=== PATIENT | male | born 1940 | race Caucasian/White ===

== ENCOUNTER 2022-07-08 15:51 | Observation (INO) | payer MEDICARE, SELFPAY ==
[2022-07-08] VITALS (8 sets, daily range): BP systolic 155–215; BP diastolic 62–101; PULSE 55–117; RESP 13–17; TEMP 36.6–36.8; O2SAT 96–98; BMI 20.7
--- NOTE | ~2022-07-08 | CT_ITS ---
EXAMINATION: CT HEAD WITHOUT CONTRAST CLINICAL INFORMATION: Generalized weakness. No neurological defects. COMPARISON: CT brain 10/29/2010 TECHNIQUE: Contiguous axial imaging was performed from the skull base to vertex without intravenous administration of contrast. This CT examination was performed using dose optimization techniques as appropriate, variously including the following: *Automated exposure control *Adjustment of mA and/or kV according to patient size (this includes techniques or standardized protocols for targeted exams where dose is matched to indication/reason for exam; i.e. extremities or head) *Use of iterative reconstruction technique DLP: 691 mGy-cm FINDINGS: There are densities in the subcortical brain tissue in bilateral frontoparietal regions, suspected to be artifactual. There is otherwise no evidence of acute intracranial hemorrhage or territorial infarction. No abnormal mass effect or midline shift is seen. Boateng to white matter differentiation is well preserved. No extra-axial fluid collections are identified. Commensurate prominence of the ventricles and sulci is compatible with generalized parenchymal volume loss. There is patchy periventricular and subcortical white matter hypoattenuation, most likely representing microangiopathic disease. No acute calvarial fracture.. Paranasal sinuses and mastoid air cells are well-aerated. CT/CT head/brain wo IV con IMPRESSION: Subcortical densities in bilateral frontoparietal regions, suspected to be artifactual. Repeat CT scan as clinically warranted. Otherwise, CT evidence of acute intracranial hemorrhage or edematous territorial infarction.
--- NOTE | ~2022-07-08 | XR_ITS ---
EXAMINATION: XR CHEST CLINICAL INFORMATION: Weakness, pneumonia COMPARISON: X-ray 02/28/2009 TECHNIQUE: Frontal view of the chest was obtained. FINDINGS: The cardiomediastinal silhouette is within normal limits. The lungs are well expanded. There is no focal consolidation, edema, or effusion. No pneumothorax. No acute osseous abnormality. XR/XR chest 1V IMPRESSION: No focal consolidation
--- NOTE | ~2022-07-08 | MR_ITS ---
EXAMINATION: MRI OF THE BRAIN WITHOUT CONTRAST CLINICAL INFORMATION: Stroke like symptoms. COMPARISON: CTA of the head and neck 07/08/2022. TECHNIQUE: MRI of the brain was obtained using routine sequences without contrast. FINDINGS: No diffusion abnormalities are identified to suggest an acute or subacute infarct. No mass effect or midline shift is seen. There is commensurate prominence of the ventricles and sulci consistent with moderate diffuse volume loss. There are multiple scattered foci of hyperintense T2 and place signal in the periventricular and subcortical white matter, most consistent with chronic microvascular ischemic changes. There is a chronic lacunar infarct in the right centrum semiovale. No extra-axial fluid collections are seen. The brainstem and cerebellum are normal. There is a 4 mm focus of low gradient signal in the left frontal lobe, without corresponding abnormal signal on other sequences, which is nonspecific and may be consistent with a small cavernoma. A similar but less prominent focus is seen in the inferior right frontal lobe anterolaterally. There are a few small subcortical foci of low gradient signal in the cerebral hemispheres bilaterally and medial to the occipital horn of the left lateral ventricle, which may be consistent with amyloid angiopathy. The craniovertebral junction, marrow signal, and midline structures are normal. The major intracranial flow-voids at the level of the [place] of [place] are preserved. 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 The extradural vertebral arteries are also not well seen on these images. The dural venous sinus flow-voids are maintained. There have been bilateral lens extractions. There is moderate fluid in the right mastoid air cells. There is a small retention cyst anteriorly in the left maxillary sinus. MR/MR head/brain wo con IMPRESSION: 1. There are no acute bleeds or territorial infarcts. No masses are demonstrated. 2. There are chronic microvascular ischemic changes and there is diffuse volume loss. 3. There are multiple areas of subcortical low gradient signal bilaterally as described above which may be consistent with amyloid angiopathy. The focus in the left frontal lobe may be consistent with a small cavernoma.
--- NOTE | ~2022-07-08 | CT_ITS ---
EXAMINATION: CT ANGIOGRAM HEAD CT ANGIOGRAM NECK CLINICAL INFORMATION: Ataxia COMPARISON: CT head 07/08/2022 TECHNIQUE: Initial noncontrast plumbing instructor imaging of the head and neck was performed. Comparison is made with noncontrast head CT from earlier today. Test bolus sequences followed by intravenous administration 70 mL of Omnipaque 350. Helical imaging was performed in the axial plane from the aortic arch to the skull vertex. Delayed postcontrast imaging of the head was also performed. The data was processed at the certified cytotechnologist's workstation for generation of MIP sequences. Angled MIPs and volume rendered reformatted images were also generated at an offline 3D workstation. Stenoses are assessed in accordance with Dee et al. Quantification of Carotid Stenosis on CT Angiography. AJR 2006. 27(1):13-19. This CT examination was performed using dose optimization techniques as appropriate, variously including the following: *Automated exposure control *Adjustment of mA and/or kV according to patient size (this includes techniques or standardized protocols for targeted exams where dose is matched to indication/reason for exam; i.e. extremities or head) *Use of iterative reconstruction technique DLP: 1542.12 mGy-cm FINDINGS: CT HEAD: Motion artifact degrades diagnostic assessment. Moderate generalized parenchymal volume loss and mild chronic microangiopathy. No territorial loss of phillips-white differentiation. Post contract technique limits assessment for subarachnoid hemorrhage however no gross intracranial hemorrhage is seen. No significant mass effect or herniation pattern No pathologic intra-axial enhancement within limitations of CT or regional oligemia. The orbits are grossly normal. Paranasal sinuses and mastoid air cells are well aerated. Osseous structures are intact. CTA HEAD: Mild calcific plaque along the carotid siphons without significant luminal stenosis. 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 The MCA vascular complexes are normal bilaterally. The GIACOMO complexes are normal bilaterally. The intradural vertebral arteries are patent. The basilar artery is normal. The posterior cerebral arteries are widely patent. No proximal large vessel occlusion. No no high flow vascular malformations. No evidence of dural arteriovenous fistula. Timing of the contrast bolus allows assessment of the major dural venous sinuses, which all opacify normally CTA NECK: Apparent borderline enlargement of the pulmonary artery up to 3 cm which may be seen in the setting of pulmonary hypertension, noting motion artifact limits diagnostic assessment. Bovine configuration of the aortic arch with common origin of the innominate and left common carotid arteries. Mild partially calcified fibrofatty plaque in the aortic arch and great vessels with widely patent great vessel origins. The common carotid arteries are widely patent. Partially calcified fibrofatty plaque at the carotid bifurcations without luminal narrowing of the internal carotid arteries and with normal opacification of the remainder of the cervical internal carotid arteries. The left vertebral artery is dominant. The vertebral artery ostia are widely patent. Shelf-like linear filling defect along the anterior wall of the left V3 vertebral artery likely intimal flap from age indeterminate dissection (image 627, series 6), however without luminal narrowing or mural thickening to suggest intramural hematoma. Otherwise, the vertebral arteries are unremarkable and widely throughout their extracranial cervical course. CT NECK: Boutonniere deformities of the mylohyoid muscles with partially herniated sublingual glands into the bilateral submandibular space. The visualized lung apices and upper mediastinum are within normal limits. Diffuse osteopenia. Multilevel cervical spondylosis. Prior median sternotomy. CT/CT angio head neck IMPRESSION: 1. No acute intracranial abnormality. 2. Shelf-like linear filling defect along the anterior wall of the left V3 vertebral artery likely represents an intimal flap from age indeterminate dissection, however without luminal narrowing or mural thickening to suggest intramural hematoma. 3. 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 4. Apparent borderline enlargement of the pulmonary artery up to 3 cm which may be seen in the setting of pulmonary hypertension, noting motion artifact limits diagnostic assessment.
--- NOTE | 2022-07-08 16:12 | ECG_ITS ---
Test Reason : dizzy Blood Pressure : / mmHG Vent. Rate : 068 BPM Atrial Rate : 227 BPM P-R Int : 000 ms QRS Dur : 124 ms QT Int : 434 ms P-R-T Axes : 000 -55 032 degrees QTc Int : 461 ms Atrial flutter with variable A-V block Right bundle branch block Left anterior fascicular block Bifascicular block Minimal voltage criteria for LVH, may be normal variant ( R in aVL ) Abnormal ECG When compared with ECG of 21-JAN-2009 14:36, Atrial flutter has replaced Sinus rhythm (RBBB and left anterior fascicular block) is now Present Referred By: Generic ED Physician Electronically Signed By:David Mohamud
--- NOTE | 2022-07-08 16:30 | PC.NURSE ---
patient a&ox3, iv inserted, labs drawn, ekg performed, monitor worker applied a-flutter on monitor, pt states he is feeling much better than he was, neuro intact, no c/o pain/discomfort, family at bedside, call garcia within reach, will continue to monitor
[2022-07-08 16:36] LABS: MANUAL DIFF FLAG NO
[2022-07-08 16:38] LABS: Basophils Percent Auto 0.5 % (0-2); Eosinophils Absolute Auto 0.2 X10*3/uL (0.0-0.4); Eosinophils Percent Auto 3.4 % (0-4); Hematocrit 48.6 % (42.0-52.0); Hemoglobin 15.9 g/dl (14.0-18.0); Imm Gran Abs Auto 0.02 X10*3/uL (0.00-0.03); Imm Gran Pct Auto 0.4 % (0.0-0.4); Lymphocytes Absolute Auto 0.7 X10*3/uL (1.2-4.9); Lymphocytes Percent Auto 11.9 % (20-40); Mean Corpuscular HGB Conc 32.7 g/dl (31.0-36.0); Mean Corpuscular Hemoglobin 32.1 pg (27.0-33.0); Mean Corpuscular Volume 98.2 fL (80.0-98.0); Mean Platelet Volume 10.7 fL (9.4-12.4); Monocytes Absolute Auto 0.6 X10*3/uL (0.1-1.2); Monocytes Percent Auto 10.5 % (2-11); Neutrophils Absolute Auto 4.1 x10*3/uL (2.0-8.3); Neutrophils Percent Auto 73.3 % (45-73); Platelet Count 200 X10*3/uL (160-400); Red Blood Count 4.95 X10*6/uL (4.60-5.80); Red Cell Distribution Width 12.9 % (11.0-16.0); White Blood Count 5.5 X10*3/uL (4.8-10.8)
--- NOTE | 2022-07-08 16:42 | ED.GENADULT ---
HPI - General Adult General Chief complaint: Dizziness Stated complaint: dizzness and weakness Time Seen by Provider: 07/08/22 16:13 Source: patient Mode of arrival: ambulatory Limitations: no limitations History of Present Illness HPI narrative: 81 yold male with history of Mitral Valve prolapse and NE presents to the ED for dizziness described as generalized weakness and fatigue. Patient and states they were walking and patient than states he felt to fatigue to walk. states there were was no water or shade available while walking under the sun. states patient usually walks only for 10 minutes, but today patient decided to walk longer than usual ( 40 minutes walk and became fatigue). Patient denies any slurred speech, nausea, vomitting, chest pain, shortness of breath, facial droop, loss of vision, or paralysis of extremities. patient states just feel fatigue. Related Data Allergies Allergy/AdvReac Type Severity Reaction Status Date / Time metoprolol [Metoprolol] Allergy Intermediate RASH Verified 07/08/22 16:03 cephalexin [Cephalexin] Allergy Unknown UNKNOWN Verified 07/08/22 16:03 ciprofloxacin [From Cipro] Allergy Unknown UNKNOWN Verified 07/08/22 16:03 Sulfa Allergy Unknown Unknown Uncoded 07/08/22 16:03 Review of Systems Review of Systems: Dizziness described as fatigue Yes all other systems are reviewed and are negative [facility] Past Medical History Medical History (Updated 07/09/22 @ 00:15 by AJ Hartmann) Myocardial infarction Surgical History (Updated 07/08/22 @ 16:12 by Marilou Herrera RN) H/O mitral valve replacement Social History Social History Alcohol intake: current Alcohol intake frequency: 0-2 drinks per day Alcohol type: beer and hard liquor Smoked in Last 30 Days: No Use of substances other than those prescribed or required for medical reasons: No Advance Directives: No Advance Directives Information Provided: Yes Physical Exam ED Vital Signs: Vital Signs - 24 hr 07/08/22 16:04 07/08/22 17:06 07/08/22 17:07 Temperature 98.2 F Pulse Rate 76 58 62 Respiratory Rate 16 Blood Pressure 155/81 H 157/94 H 163/82 H Pulse Oximetry 96 Oxygen Delivery Method Room Air 07/08/22 17:09 07/08/22 18:00 07/08/22 19:31 Temperature 97.9 F Pulse Rate 61 55 55 Respiratory Rate 16 13 Blood Pressure 156/73 H 202/98 H 164/62 H Pulse Oximetry 98 97 Oxygen Delivery Method Room Air Room Air 07/08/22 21:13 07/08/22 23:01 Temperature Pulse Rate 79 78 Respiratory Rate 16 17 Blood Pressure 196/101 H 215/95 H Pulse Oximetry 97 96 Oxygen Delivery Method Room Air Room Air BMI result Body Mass Index 20.7 Const General: cooperative, healthy appearing, comfortable, no acute distress, well developed, alert, awake and Physically active [facility] Head: Yes normal to inspection, Yes No palpable skull fracture present, Yes normocephalic, Yes atraumatic and No abrasion Eyes Other: Negative nystagmus General: appearance normal, both eyes and all related structures Pupils: Equal, round and reactive pupils present Neck Neck: Yes normal visual inspection, Yes full ROM, Yes no lymphadenopathy, Yes no meningeal signs, Yes trachea midline, Yes supple, No anterior neck swelling and No tender Chest Chest palpation & inspection: normal inspection of the chest and normal palpation of entire chest wall Resp Effort & Inspection: normal respiratory effort and able to speak in complete sentences Auscultation: clear to auscultation bilaterally Cardio Jugular venous distension: no JVD Heart sounds: S1 normal heart sound present and S2 normal heart sound present GI Inspection: Yes normal to inspection and No abdominal wall ecchymosis Palpation (GI): Soft to palpation, not firm, nontender, no guarding and not rigid General: No CVA tenderness and Yes no CVA tenderness Back/Spine/Pelvis Back: no CVA tenderness, No CVA tenderness and No back tenderness Skin General skin exam: no rashes or lesions noted and elasticity normal Neuro Other: Negative facial droop. Negative slurred speech. Negative pronator drift. All extremities equal strength 5+. Finger to Nose and rapid hand movement intact. NIH score 0. General: no meningeal signs Cranial nerves: Yes Equal, round and reactive pupils present Extrem General: Yes normal to inspection and Yes full ROM Psych Appearance: grossly normal, well kempt and not disheveled Course Course Course Narrative: Patient will have a medical evaluation such as EKG, cardiac enzymes, chest x-ray looking for infection and urine also look for infection. Negative for signs of stroke but was sent for head CT scan. Most likely patient feeling tired+ from walking in the sun not drinking water. Heat Stroke Medications Administered Discontinued Medications Generic Name Dose Route Start Last Admin Trade Name Akhilq PRN Reason Stop Dose Admin Amiodarone HCl 200 mg 07/08/22 23:03 07/08/22 23:22 Amiodarone Hcl 200 Mg Tablet PO 07/08/22 23:04 200 mg ONCE ONE Administration Carvedilol 3.125 mg 07/08/22 23:03 07/08/22 23:21 Carvedilol 3.125 Mg Tablet PO 07/08/22 23:04 3.125 mg ONCE ONE Administration Protocol Sodium Chloride 1,000 mls @ 999 mls/hr 07/08/22 16:39 07/08/22 19:42 Ns IV 07/08/22 17:39 Infused .Q1H1M STA Infusion Sodium Chloride 1,000 mls @ 999 mls/hr 07/08/22 16:40 07/08/22 19:42 Ns IV 07/08/22 17:40 Infused .Q1H1M STA Infusion Iohexol 70 ml 07/09/22 00:01 07/09/22 00:02 Iohexol 350 Mg/Ml 100 Ml Infus..Btl IV 07/09/22 00:02 70 ml ONCE ONE Administration Medical Decision Making Medical Decision Making MDM Narrative: 81-year-old male with past medical history of dementia, coronary artery disease, hypertension, hyperlipidemia, mitral valve prolapse, afib presents to the ED for dizziness described as fatigue. Negative for any neuro deficits. Patient walking for long under summer sun without any shade or water. Labs, chest x-ray, head CT, UA, EKG ordered 5:00pm - notes received from [facility] shows that patient has history of atrial fibrillation and is on apixaban. Also he had normal head CT scan, MRIs, and CT angiogram in February of this year. Patient's echocardiogram showed ejection fraction of 55-60% without any wall abnormalities. Prior EKGs from [facility] show atrial fibrillation and right bundle branch and left bundle branch block. Orthostatic negative. 7:11pm- blood pressure elevated at 202 systolic. Patient is asymptomatic. Will repeat blood pressure. CT scan of the head negative for any acute intracranial infarction hemorrhage. CT scan of head shows subcortical densities bilaterally which is artifactual 12:10am- patient walking and leanin to his right side with dizziness. states this has been occurring since yesterday morning ( patient and did not mention this to me on inital HPI). Hospitalist evaluated patient and recommend head and neck CTA and admit for MRI in the morning. Head and Neck CTA from [facility] notes aneurysm. Patient admitted to the hospital. Repeat troponin negative. UA negative for UTI Differential Diagnosis Differential Diagnoses: The differential diagnosis associated with the presentation includes (NE, stroke, dizziness, pneumonia, UTI, orthostatic hypotension) Admission/Observation Consideration of admission/observation: Escalation of care including admission/observation considered Consult Healthcare Provider Management of the patient was discussed with: Hospitalist (Dr. Valencia) Lab Data [facility] Lab Attestation statement: I reviewed the patient's lab results. 07/08/22 16:25 07/08/22 16:25 Labs: Lab Results 07/08/22 07/08/22 07/08/22 Range/Units 16:25 16:25 16:25 WBC 5.5 (4.8-10.8) X10*3/uL RBC 4.95 (4.60-5.80) X10*6/uL Hgb 15.9 (14.0-18.0) g/dl Hct 48.6 (42.0-52.0) % MCV 98.2 H (80.0-98.0) fL MCH 32.1 (27.0-33.0) pg MCHC 32.7 (31.0-36.0) g/dl RDW 12.9 (11.0-16.0) % Plt Count 200 (160-400) X10*3/uL MPV 10.7 (9.4-12.4) fL Immature Gran % (Auto) 0.4 (0.0-0.4) % Neut % (Auto) 73.3 H (45-73) % Lymph % (Auto) 11.9 L (20-40) % [place] % (Auto) 10.5 (2-11) % Eos % (Auto) 3.4 (0-4) % Baso % (Auto) 0.5 (0-2) % Lymph # (Auto) 0.7 L (1.2-4.9) X10*3/uL [place] # (Auto) 0.6 (0.1-1.2) X10*3/uL Eos # (Auto) 0.2 (0.0-0.4) X10*3/uL Baso # (Auto) 0.0 (0.0-0.2) X10*3/uL Abs Immat Gran (auto) 0.02 (0.00-0.03) X10*3/uL Absolute Neuts (auto) 4.1 (2.0-8.3) x10*3/uL Absolute Nucleated RBC 0.000 (0.0-0.012) X10*3/uL Nucleated RBC % (auto) 0.0 (0.0-0.2) /100WBC PT (10.0-13.1) SEC INR (0.9-1.1) APTT (26.0-36.4) SEC Sodium 144 (135-145) mmol/L Potassium 4.6 (3.3-5.1) mmol/L Chloride 108 (96-108) mmol/L Carbon Dioxide 28 (22-29) mmol/L Anion Gap 13 (12-20) BUN 15 (9-16) mg/dL Creatinine 1.31 (0.5-1.4) mg/dL Estim Creat Clear Calc 40.3 Estimated GFR 53 Random Glucose 105 (60-115) mg/dL Calcium 9.5 (8.4-10.2) mg/dL Total Bilirubin 1.3 H (0.0-1.0) mg/dL Direct Bilirubin 0.4 (0.0-0.5) mg/dL AST 23 (5-37) U/L ALT 11 (0-40) U/L Alkaline Phosphatase 130 H (39-117) U/L Troponin I High Sens 8.7 (<3.5-35.0) ng/L B-Natriuretic Peptide (<100) pg/mL Total Protein 6.4 L (6.5-8.0) g/dL Albumin 4.1 (3.5-5.0) g/dL Urine Color Urine Appearance Urine pH (5.0-9.0) Ur Specific [place] (1.005-1.025) Urine Protein (Neg-Trace) mg/dL Urine Glucose (UA) (Negative) mg/dL Urine Ketones (Negative) mg/dL Urine Blood (Negative) Urine Nitrite (Negative) Ur Leukocyte Esterase (Negative) 07/08/22 07/08/22 07/08/22 Range/Units 16:25 16:25 19:28 WBC (4.8-10.8) X10*3/uL RBC (4.60-5.80) X10*6/uL Hgb (14.0-18.0) g/dl Hct (42.0-52.0) % MCV (80.0-98.0) fL MCH (27.0-33.0) pg MCHC (31.0-36.0) g/dl RDW (11.0-16.0) % Plt Count (160-400) X10*3/uL MPV (9.4-12.4) fL Immature Gran % (Auto) (0.0-0.4) % Neut % (Auto) (45-73) % Lymph % (Auto) (20-40) % [place] % (Auto) (2-11) % Eos % (Auto) (0-4) % Baso % (Auto) (0-2) % Lymph # (Auto) (1.2-4.9) X10*3/uL [place] # (Auto) (0.1-1.2) X10*3/uL Eos # (Auto) (0.0-0.4) X10*3/uL Baso # (Auto) (0.0-0.2) X10*3/uL Abs Immat Gran (auto) (0.00-0.03) X10*3/uL Absolute Neuts (auto) (2.0-8.3) x10*3/uL Absolute Nucleated RBC (0.0-0.012) X10*3/uL Nucleated RBC % (auto) (0.0-0.2) /100WBC PT 13.6 H (10.0-13.1) SEC INR 1.2 H (0.9-1.1) APTT 30.2 (26.0-36.4) SEC Sodium (135-145) mmol/L Potassium (3.3-5.1) mmol/L Chloride (96-108) mmol/L Carbon Dioxide (22-29) mmol/L Anion Gap (12-20) BUN (9-16) mg/dL Creatinine (0.5-1.4) mg/dL Estim Creat Clear Calc Estimated GFR Random Glucose (60-115) mg/dL Calcium (8.4-10.2) mg/dL Total Bilirubin (0.0-1.0) mg/dL Direct Bilirubin (0.0-0.5) mg/dL AST (5-37) U/L ALT (0-40) U/L Alkaline Phosphatase (39-117) U/L Troponin I High Sens 11.6 (<3.5-35.0) ng/L B-Natriuretic Peptide 84 (<100) pg/mL Total Protein (6.5-8.0) g/dL Albumin (3.5-5.0) g/dL Urine Color Urine Appearance Urine pH (5.0-9.0) Ur Specific [place] (1.005-1.025) Urine Protein (Neg-Trace) mg/dL Urine Glucose (UA) (Negative) mg/dL Urine Ketones (Negative) mg/dL Urine Blood (Negative) Urine Nitrite (Negative) Ur Leukocyte Esterase (Negative) 07/08/22 Range/Units 21:15 WBC (4.8-10.8) X10*3/uL RBC (4.60-5.80) X10*6/uL Hgb (14.0-18.0) g/dl Hct (42.0-52.0) % MCV (80.0-98.0) fL MCH (27.0-33.0) pg MCHC (31.0-36.0) g/dl RDW (11.0-16.0) % Plt Count (160-400) X10*3/uL MPV (9.4-12.4) fL Immature Gran % (Auto) (0.0-0.4) % Neut % (Auto) (45-73) % Lymph % (Auto) (20-40) % [place] % (Auto) (2-11) % Eos % (Auto) (0-4) % Baso % (Auto) (0-2) % Lymph # (Auto) (1.2-4.9) X10*3/uL [place] # (Auto) (0.1-1.2) X10*3/uL Eos # (Auto) (0.0-0.4) X10*3/uL Baso # (Auto) (0.0-0.2) X10*3/uL Abs Immat Gran (auto) (0.00-0.03) X10*3/uL Absolute Neuts (auto) (2.0-8.3) x10*3/uL Absolute Nucleated RBC (0.0-0.012) X10*3/uL Nucleated RBC % (auto) (0.0-0.2) /100WBC PT (10.0-13.1) SEC INR (0.9-1.1) APTT (26.0-36.4) SEC Sodium (135-145) mmol/L Potassium (3.3-5.1) mmol/L Chloride (96-108) mmol/L Carbon Dioxide (22-29) mmol/L Anion Gap (12-20) BUN (9-16) mg/dL Creatinine (0.5-1.4) mg/dL Estim Creat Clear Calc Estimated GFR Random Glucose (60-115) mg/dL Calcium (8.4-10.2) mg/dL Total Bilirubin (0.0-1.0) mg/dL Direct Bilirubin (0.0-0.5) mg/dL AST (5-37) U/L ALT (0-40) U/L Alkaline Phosphatase (39-117) U/L Troponin I High Sens (<3.5-35.0) ng/L B-Natriuretic Peptide (<100) pg/mL Total Protein (6.5-8.0) g/dL Albumin (3.5-5.0) g/dL Urine Color Yellow Urine Appearance Clear Urine pH 6.5 (5.0-9.0) Ur Specific [place] 1.015 (1.005-1.025) Urine Protein Negative (Neg-Trace) mg/dL Urine Glucose (UA) Negative (Negative) mg/dL Urine Ketones 15 (Negative) mg/dL Urine Blood Negative (Negative) Urine Nitrite Negative (Negative) Ur Leukocyte Esterase Negative (Negative) Independent Interpretation I performed an independent interpretation of an: EKG (Atrial flutter bifascicular block. Ventricular rate 68 QRS 124 QTC 460 negative STEMI) Discharge Plan Discharge Clinical Impression: Dizziness Patient Disposition: Admitted As Inpatient
[2022-07-08 16:46] LABS: INTERNATIONAL NORM RATIO 1.2 (0.9-1.1); Prothrombin Time 13.6 SEC (10.0-13.1)
[2022-07-08 16:55] LABS: Anion Gap 13 (12-20); Blood Urea Nitrogen 15 mg/dL (9-16); Calcium 9.5 mg/dL (8.4-10.2); Carbon Dioxide 28 mmol/L (22-29); Chloride 108 mmol/L (96-108); Creatinine Clr Calc Pharmacy 40.3; Estimated Glomerular Filt Rate 53; Glucose Random 105 mg/dL (60-115); Potassium 4.6 mmol/L (3.3-5.1); Sodium 144 mmol/L (135-145)
[2022-07-08 17:11] LABS: Troponin-I High Sensitivity 8.7 ng/L (<3.5-35.0)
[2022-07-08 17:20] LABS: Alanine Aminotransferase 11 U/L (0-40); Albumin Level 4.1 g/dL (3.5-5.0); Alkaline Phosphatase 130 U/L (39-117); Aspartate Amino Transferase 23 U/L (5-37); Bilirubin Direct 0.4 mg/dL (0.0-0.5); Bilirubin Total 1.3 mg/dL (0.0-1.0); Total Protein 6.4 g/dL (6.5-8.0)
[2022-07-08] MEDS: 0.9 % Sodium Chloride 1,000 ML 999 ML IV ×2 (17:27)
[2022-07-08 17:28] LABS: Partial Thromboplastin Time 30.2 SEC (26.0-36.4)
--- NOTE | 2022-07-08 17:30 | PC.NURSE ---
IVF started per order
[2022-07-08 17:51] LABS: B Type Natriuretic Peptide 84 pg/mL (<100)
--- NOTE | 2022-07-08 18:18 | PC.NURSE ---
patient a&ox3, ivf continue to run slowly, administrative assistant data entry aflutter-50s, call garcia within reach, will continue to monitor
--- NOTE | 2022-07-08 20:14 | PC.NURSE ---
assumed care of pt no apparent distress at bedside
[2022-07-08 20:15] LABS: Troponin-I High Sensitivity 11.6 ng/L (<3.5-35.0)
--- NOTE | 2022-07-08 20:15 | PC.NURSE ---
Addendum entered by Michelle Lambert 07/08/22 21:24: provider aware provider to follow up with pt in r/t gait Original Note: assisted pt to restroom and back to bed unsteady gait- leaning more on R side
--- NOTE | 2022-07-08 21:24 | PC.NURSE ---
assisted pt to restroom and urine sample obtained
--- NOTE | 2022-07-08 21:25 | PC.NURSE ---
pt requires assistance while ambulating- unsteady gait
[2022-07-08 21:30] LABS: Appearance Urine Clear; Color Urine Yellow; Glucose Urine UA Negative (Negative); Leukocyte Esterase Urine Negative (Negative); Nitrite Urine Negative (Negative); PH 6.5 (5.0-9.0); Specific Gravity - Urine 1.015 (1.005-1.025); Urine Blood Negative (Negative); Urine Ketones 15 mg/dL (Negative); Urine Protein Negative (Neg-Trace)
[2022-07-08] MEDS: carvediloL 3.125 MG TABLET PO (23:21)
[2022-07-08] MEDS: Amiodarone HCL 200 MG TABLET PO (23:22)
--- NOTE | 2022-07-08 23:53 | P.HPHOSP_ITS ---
History of Present Illness Date of Service: 07/08/22 Chief Complaint: difficulty walking, 81-year-old male with past medical history of paroxysmal AFib on Eliquis, hypertension, CAD status post stent, mild Alzheimer's dementia, HLD, mitral valve replacement presents to the hospital with complaints of difficulty walking. patient has mild dementia therefore history is obtained mostly from his . They said that they were on a walk when suddenly patient started walking strangely leaning to the right, and almost falling. asks the neighbors for a chair, they sat, called ambulance and came to the hospital. states that he has had these abnormal leaning to the right on and off for the past 4-5 years but this was the worst episode where he was completely leaning to the right which scared her and prompted them to call the ambulance. Patient himself denies any headache, no change in vision, no numbness weakness or tingling, no chest pain, no shortness of breath, no abdominal pain, no diar yas constipation, no urinary symptoms and no lower extremity edema. Records from [facility] reviewed, patient had Head CT and CT angiogram done in 2021 for stroke-like symptoms, at that time studies were negative. on arrival to the ED patient hemodynamically stable with no significant abnormalities Labs are reviewed and show no significant abnormality, UA negative for acute infection given his significant ataxic gait pt will be admitted for fruther evaluation Review of Systems Review of Systems: Yes all other systems are reviewed and are negative [facility] Medical History (Updated 07/09/22 @ 08:07 by Feroz Celestin MD) Alzheimer's dementia CAD (coronary artery disease) HLD (hyperlipidemia) Hypertension Myocardial infarction Paroxysmal A-fib Surgical History H/O mitral valve replacement Social History Household Members: Spouse Housing: House Do you presently have visiting nurse or other home services: No Alcohol intake: current Alcohol intake frequency: 0-2 drinks per day Alcohol type: beer and hard liquor Patient Tobacco Use Status: Never used Tobacco Smoked in Last 30 Days: No Use of substances other than those prescribed or required for medical reasons: No Have you been hit, kicked, punched, or otherwise hurt by someone within the past year? If so, by whom?: No Do you feel safe in your current relationship?: Yes Is there a partner from a previous relationship who is making you feel unsafe now?: No Are you made to feel afraid or neglected: No Spiritual Healthcare Practices: druze Advance Directives: No Advance Directives Information Provided: Yes Do you have thoughts of harming others: None Do you have a plan to hurt others: No Plan Recently lost weight without trying: No Nutrition Risks: No Nutritional Risk Poor oral hygiene: No Meds Allergies Allergy/AdvReac Type Severity Reaction Status Date / Time metoprolol [Metoprolol] Allergy Intermediate RASH Verified 07/08/22 16:03 cephalexin [Cephalexin] Allergy Unknown UNKNOWN Verified 07/08/22 16:03 ciprofloxacin [From Cipro] Allergy Unknown UNKNOWN Verified 07/08/22 16:03 Sulfa Allergy Unknown Unknown Uncoded 07/08/22 16:03 Home Medications Medication Instructions Recorded Confirmed Last Taken Type amiodarone 200 mg tablet 200 mg PO DAILY 07/09/22 07/09/22 Unknown History apixaban 5 mg tablet (Eliquis) 5 mg PO BID 07/09/22 07/09/22 Unknown History aspirin 81 mg tablet 81 mg PO DAILY 07/09/22 07/09/22 Unknown History atorvastatin 10 mg tablet 10 mg PO DAILY 07/09/22 07/09/22 Unknown History carvedilol 3.125 mg tablet 3.125 mg PO BID 07/09/22 07/09/22 Unknown History memantine 10 mg tablet 10 mg PO BID 07/09/22 07/09/22 Unknown History multivitamin 1 tab PO DAILY 07/09/22 07/09/22 Unknown History Physical Exam Vital Signs and Narrative: Vital Signs: Last Vital Signs Temp 97.9 F 07/08/22 18:00 Pulse 78 07/08/22 23:01 Resp 17 07/08/22 23:01 BP 215/95 H 07/08/22 23:01 Pulse Ox 96 07/08/22 23:01 O2 Del Method Room Air 07/08/22 23:01 BMI result Body Mass Index 20.7 Const: General: cooperative and no acute distress Orientation/consciousness: patient oriented x3 Eyes: General: appearance normal, both eyes and all related structures Pupils: Equal, round and reactive pupils present Resp: Effort & Inspection: normal respiratory effort Auscultation: clear to auscultation bilaterally Cardio: Rate: regular rate Rhythm: regular rhythm GI: Palpation (GI): Soft to palpation Auscultation: normal bowel sounds Skin: General skin exam: no rashes or lesions noted Neuro: Other: on walking patient is leaning to the right, otherwise no focal neurological deficits, strength is 5/5 in all extremities, no vision abnorm General: patient oriented x3 Cranial nerves: Yes Equal, round and reactive pupils present Cognition (Neuro): normal cognition Extrem: General: Yes normal to inspection and Yes no pedal edema Results Labs 07/08/22 16:25 07/08/22 16:25 Labs: Laboratory Results - last 24 hr 07/08/22 07/08/22 07/08/22 16:25 16:25 16:25 MCV 98.2 H MCH 32.1 MCHC 32.7 RDW 12.9 Plt Count 200 MPV 10.7 Immature Gran % (Auto) 0.4 Neut % (Auto) 73.3 H Lymph % (Auto) 11.9 L [place] % (Auto) 10.5 Eos % (Auto) 3.4 Baso % (Auto) 0.5 Lymph # (Auto) 0.7 L [place] # (Auto) 0.6 Eos # (Auto) 0.2 Baso # (Auto) 0.0 Abs Immat Gran (auto) 0.02 Absolute Neuts (auto) 4.1 Absolute Nucleated RBC 0.000 Nucleated RBC % (auto) 0.0 PT INR APTT Anion Gap 13 Estim Creat Clear Calc 40.3 Estimated GFR 53 Random Glucose 105 Calcium 9.5 Total Bilirubin 1.3 H Direct Bilirubin 0.4 AST 23 ALT 11 Alkaline Phosphatase 130 H Troponin I High Sens 8.7 B-Natriuretic Peptide Total Protein 6.4 L Albumin 4.1 Urine Color Urine Appearance Urine pH Ur Specific [place] Urine Protein Urine Glucose (UA) Urine Ketones Urine Blood Urine Nitrite Ur Leukocyte Esterase 07/08/22 07/08/22 07/08/22 16:25 16:25 19:28 MCV MCH MCHC RDW Plt Count MPV Immature Gran % (Auto) Neut % (Auto) Lymph % (Auto) [place] % (Auto) Eos % (Auto) Baso % (Auto) Lymph # (Auto) [place] # (Auto) Eos # (Auto) Baso # (Auto) Abs Immat Gran (auto) Absolute Neuts (auto) Absolute Nucleated RBC Nucleated RBC % (auto) PT 13.6 H INR 1.2 H APTT 30.2 Anion Gap Estim Creat Clear Calc Estimated GFR Random Glucose Calcium Total Bilirubin Direct Bilirubin AST ALT Alkaline Phosphatase Troponin I High Sens 11.6 B-Natriuretic Peptide 84 Total Protein Albumin Urine Color Urine Appearance Urine pH Ur Specific [place] Urine Protein Urine Glucose (UA) Urine Ketones Urine Blood Urine Nitrite Ur Leukocyte Esterase 07/08/22 21:15 MCV MCH MCHC RDW Plt Count MPV Immature Gran % (Auto) Neut % (Auto) Lymph % (Auto) [place] % (Auto) Eos % (Auto) Baso % (Auto) Lymph # (Auto) [place] # (Auto) Eos # (Auto) Baso # (Auto) Abs Immat Gran (auto) Absolute Neuts (auto) Absolute Nucleated RBC Nucleated RBC % (auto) PT INR APTT Anion Gap Estim Creat Clear Calc Estimated GFR Random Glucose Calcium Total Bilirubin Direct Bilirubin AST ALT Alkaline Phosphatase Troponin I High Sens B-Natriuretic Peptide Total Protein Albumin Urine Color Yellow Urine Appearance Clear Urine pH 6.5 Ur Specific [place] 1.015 Urine Protein Negative Urine Glucose (UA) Negative Urine Ketones 15 Urine Blood Negative Urine Nitrite Negative Ur Leukocyte Esterase Negative Imaging Radiologist's Impressions: Impressions Chest X-Ray 07/08/22 16:45 IMPRESSION: No focal consolidation Head CT 07/08/22 17:14 IMPRESSION: Subcortical densities in bilateral frontoparietal regions, suspected to be artifactual. Repeat CT scan as clinically warranted. Otherwise, CT evidence of acute intracranial hemorrhage or edematous territorial infarction. 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 Quality Stroke Does the patient have a stroke diagnosis?: No VTE Prior VTE?: No VTE Risk Level:: Medical - moderate - high VTE Device Contraindication: Treatment Not Indicated VTE Drug Contraindication: N/A - Med Ordered
[2022-07-09] VITALS (10 sets, daily range): BP systolic 138–209; BP diastolic 60–93; PULSE 59–71; RESP 12–20; TEMP 36.2–36.7; O2SAT 95–98; BMI 21.2
--- NOTE | 2022-07-09 | EEG_ITS ---
This is a 16-channel EEG with an EKG lead. The patient is reported awake during the tracing. Background EEG rhythm is 7-8 hertz 5-30 microvolt posteriorly and lower amplitude fast anteriorly. Photic stimulation and hyperventilation were not performed. Cardiac lead does not reveal any significant abnormality. No sharp wave spikes or paroxysmal tendency noted. IMPRESSION: Generalized slowing with no evidence of seizure disorder. MD LINDSAY Shukla/SONJA / [id number]
[2022-07-09] MEDS: iohexoL 350 MG/ML 100 ML INFUS..BTL 70 ML IV (00:02)
--- NOTE | 2022-07-09 00:26 | PC.NURSE ---
med rec completed
--- NOTE | 2022-07-09 01:08 | PC.NURSE ---
Addendum entered by Michelle Lambert 07/09/22 01:10: carvedilol 3.125 mg tab and amiodarone 200 mg tab administered at 2322 (07/08/22) for elevated bp bp remains elevated but has trended down some effectiveness noted will CTM Original Note: hospitalist aware of high bp 186/93
[2022-07-09] MEDS: Apixaban 5 MG TABLET PO ×3 (01:25→19:46)
[2022-07-09] MEDS: carvediloL 6.25 MG TABLET PO (01:25)
[2022-07-09] MEDS: Memantine HCl 10 MG TABLET PO ×3 (01:25→19:46)
[2022-07-09] MEDS: hydrALAZINE HCl 20 MG/ML VIAL 5 MG IVPUSH (05:03)
[2022-07-09] MEDS: traZODone HCL 50 MG TABLET PO (05:06)
[2022-07-09 05:59] LABS: MANUAL DIFF FLAG NO
[2022-07-09 06:14] LABS: Anion Gap 13 (12-20); Blood Urea Nitrogen 12 mg/dL (9-16); Calcium 8.8 mg/dL (8.4-10.2); Carbon Dioxide 23 mmol/L (22-29); Chloride 110 mmol/L (96-108); Creatinine Clr Calc Pharmacy 60.8; Estimated Glomerular Filt Rate > 60; Glucose Random 90 mg/dL (60-115); Potassium 4.2 mmol/L (3.3-5.1); Sodium 142 mmol/L (135-145)
[2022-07-09 06:17] LABS: Cholesterol 125 mg/dL; HDL Cholesterol 36 mg/dL; LDL Cholesterol Calculated 78 mg/dl; Triglycerides 58 mg/dL
[2022-07-09 06:22] LABS: Basophils Percent Auto 0.5 % (0-2); Eosinophils Absolute Auto 0.3 X10*3/uL (0.0-0.4); Eosinophils Percent Auto 4.9 % (0-4); Hemoglobin 13.9 g/dl (14.0-18.0); Imm Gran Abs Auto 0.02 X10*3/uL (0.00-0.03); Imm Gran Pct Auto 0.3 % (0.0-0.4); Lymphocytes Absolute Auto 0.8 X10*3/uL (1.2-4.9); Lymphocytes Percent Auto 11.7 % (20-40); Mean Corpuscular HGB Conc 33.1 g/dl (31.0-36.0); Mean Corpuscular Hemoglobin 32.9 pg (27.0-33.0); Mean Corpuscular Volume 99.5 fL (80.0-98.0); Mean Platelet Volume 11.5 fL (9.4-12.4); Monocytes Absolute Auto 0.7 X10*3/uL (0.1-1.2); Monocytes Percent Auto 10.5 % (2-11); Neutrophils Absolute Auto 4.7 x10*3/uL (2.0-8.3); Neutrophils Percent Auto 72.1 % (45-73); Platelet Count 183 X10*3/uL (160-400); Red Blood Count 4.22 X10*6/uL (4.60-5.80); White Blood Count 6.5 X10*3/uL (4.8-10.8)
--- NOTE | 2022-07-09 06:37 | PC.NURSE ---
report given to DAMEON May no apparent distress, resting quietly at bedside pt in hospital bed
[2022-07-09] MEDS: Multivitamin TABLET 1 TAB PO (09:58)
[2022-07-09] MEDS: Amiodarone HCL 200 MG TABLET PO (09:58)
[2022-07-09] MEDS: carvediloL 3.125 MG TABLET PO ×2 (09:58→19:46)
[2022-07-09] MEDS: Aspirin 81 MG TAB.CHEW PO (09:59)
--- NOTE | 2022-07-09 11:26 | P.CNNE_ITS ---
History of Present Illness Data of Consult Service Date: 07/09/22 Primary Care Provider: Gurinder Escoto MD HPI Reason for consult: Confusion and difficulty walking 81-year-old male with past medical history of paroxysmal AFib on Eliquis, hypertension,? CAD status post stent, mild Alzheimer's dementia, HLD, mitral valve replacement presents to the hospital with complaints of difficulty walking. This has happened few times before during last few years. Each time it has resulted in difficulty walking and confusion for few minutes. He did not have good recollection of what had happened looking at his for explanation. Review of Systems Review of Systems: No recent fever chills or cold or flu-like illness PMFSH Past Medical History Medical History (Updated 07/09/22 @ 11:28 by Maria Elena Clark MD) Alzheimer's dementia CAD (coronary artery disease) HLD (hyperlipidemia) Hypertension Myocardial infarction Paroxysmal A-fib Surgical History Surgical History H/O mitral valve replacement Social History Social History Household Members: Spouse Housing: House Do you presently have visiting nurse or other home services: No Alcohol intake: current Alcohol intake frequency: 0-2 drinks per day Alcohol type: beer and hard liquor Patient Tobacco Use Status: Never used Tobacco Smoked in Last 30 Days: No Use of substances other than those prescribed or required for medical reasons: No Have you been hit, kicked, punched, or otherwise hurt by someone within the past year? If so, by whom?: No Do you feel safe in your current relationship?: Yes Is there a partner from a previous relationship who is making you feel unsafe now?: No Are you made to feel afraid or neglected: No Spiritual Healthcare Practices: mandaeism Advance Directives: No Advance Directives Information Provided: Yes Do you have thoughts of harming others: None Do you have a plan to hurt others: No Plan Recently lost weight without trying: No Nutrition Risks: No Nutritional Risk Poor oral hygiene: No service: No Current occupational status: retired Meds Allergies Allergy/AdvReac Type Severity Reaction Status Date / Time metoprolol [Metoprolol] Allergy Intermediate RASH Verified 07/08/22 16:03 cephalexin [Cephalexin] Allergy Unknown UNKNOWN Verified 07/08/22 16:03 ciprofloxacin [From Cipro] Allergy Unknown UNKNOWN Verified 07/08/22 16:03 Sulfa Allergy Unknown Unknown Uncoded 07/08/22 16:03 Active Medications: Current Medications Acetaminophen (Acetaminophen 325 Mg Tablet) 650 mg PO Q6H PRN PRN Reason: Pain, Mild (Pain Scale 1-3) Amiodarone HCl (Amiodarone Hcl 200 Mg Tablet) 200 mg PO DAILY [facility] Last Admin: 07/09/22 09:58 Dose: 200 mg Apixaban (Apixaban 5 Mg Tablet) 5 mg PO BID [facility] Last Admin: 07/09/22 09:59 Dose: 5 mg Aspirin (Aspirin 81 Mg Tab.Chew) 81 mg PO DAILY [facility] Last Admin: 07/09/22 09:59 Dose: 81 mg Atorvastatin Calcium (Atorvastatin Calcium 40 Mg Tablet) 40 mg PO BEDTIME [facility] Carvedilol (Carvedilol 3.125 Mg Tablet) 3.125 mg PO BID [facility]; Protocol Last Admin: 07/09/22 09:58 Dose: 3.125 mg Docusate Sodium (Docusate Sodium 100 Mg Capsule) 100 mg PO DAILY PRN PRN Reason: Constipation Memantine (Memantine Hcl 10 Mg Tablet) 10 mg PO BID [facility] Last Admin: 07/09/22 09:59 Dose: 10 mg Multivitamins/Vitamin C (Multivitamin Tablet) 1 tab PO DAILY [facility] Last Admin: 07/09/22 09:58 Dose: 1 tab Ondansetron HCl (Ondansetron Hcl 4 Mg/2 Ml Vial) 4 mg IVPUSH Q8H PRN PRN Reason: Nausea and Vomiting Home Medications Medication Instructions Recorded Confirmed Last Taken Type amiodarone 200 mg tablet 200 mg PO DAILY 07/09/22 07/09/22 Unknown History apixaban 5 mg tablet (Eliquis) 5 mg PO BID 07/09/22 07/09/22 Unknown History aspirin 81 mg tablet 81 mg PO DAILY 07/09/22 07/09/22 Unknown History atorvastatin 10 mg tablet 10 mg PO DAILY 07/09/22 07/09/22 Unknown History carvedilol 3.125 mg tablet 3.125 mg PO BID 07/09/22 07/09/22 Unknown History memantine 10 mg tablet 10 mg PO BID 07/09/22 07/09/22 Unknown History multivitamin 1 tab PO DAILY 07/09/22 07/09/22 Unknown History Physical Exam Vital Signs: Vital Signs: Last Vital Signs Temp 97.6 F 07/09/22 11:05 Pulse 59 07/09/22 11:05 Resp 20 07/09/22 11:05 BP 138/70 07/09/22 11:05 Pulse Ox 98 07/09/22 11:05 O2 Del Method Room Air 07/09/22 11:05 BMI result Body Mass Index 21.2 Neuro: Other: Alert and awake with normal spontaneity of speech fluency comprehension and flat and vague affect. He is unable to recall what had happened. Face is symmetrical. Visual hughes are full. There is no focal weakness. Deep tendon reflexes are trace to absent with flexor plantars. Results Labs 07/09/22 05:39 07/09/22 05:39 Labs: Short CBC 07/08/22 07/09/22 Range/Units 16:25 05:39 WBC 5.5 6.5 (4.8-10.8) X10*3/uL Hgb 15.9 13.9 L (14.0-18.0) g/dl Hct 48.6 42.0 (42.0-52.0) % Plt Count 200 183 (160-400) X10*3/uL BMP 07/08/22 07/09/22 16:25 05:39 Sodium 144 142 Potassium 4.6 4.2 Chloride 108 110 H Carbon Dioxide 28 23 BUN 15 12 Creatinine 1.31 0.87 Calcium 9.5 8.8 D Liver Function 07/08/22 Range/Units 16:25 Total Bilirubin 1.3 H (0.0-1.0) mg/dL Direct Bilirubin 0.4 (0.0-0.5) mg/dL AST 23 (5-37) U/L ALT 11 (0-40) U/L Alkaline Phosphatase 130 H (39-117) U/L Albumin 4.1 (3.5-5.0) g/dL Urine 07/08/22 Range/Units 21:15 Urine Color Yellow Urine Appearance Clear Urine pH 6.5 (5.0-9.0) Ur Specific [place] 1.015 (1.005-1.025) Urine Protein Negative (Neg-Trace) mg/dL Urine Glucose (UA) Negative (Negative) mg/dL head CT revealed [id number] diffuse cerebral atrophy. Assessment and Plan (1) Complex partial seizure disorder: Status: Acute 81 years old man who probably suffers from at Alzheimer dementia had few episodes suggestive of complex partial seizure disorder. I recommend an EEG for definition. If 1st EEG is negative, ambulatory long-term EEG can be considered as an outpatient (2) Alzheimer's dementia: Status: Acute Time Spent With Patient Time: Total time managing care of this patient today ____ minutes. Procedures Date of Service Date of Service: 07/09/22
--- NOTE | 2022-07-09 12:29 | MHC.CM.PN ---
TOBY 07/09/22, Pt didn't sign but was reading it over for an extended length of time, will re-attempt to have pt sign it. Pt admitted with dx TIA. Pt was living at home with his , was independent/self-care, no services/DME. D/C plan return home with new VNA services vs acute rehab. Pt and his states they would not like for pt to go to a facility and want him to come home. Pts to transport. No HCP on file, education provided and assistance offered. PCP: Gurinder Gonzalez vax: x 3
--- NOTE | 2022-07-09 14:24 | P.PNIM_ITS ---
Subjective Subjective Date of Service: 07/09/22 Interval History: Question of Difficulty walking Review of Systems Position seems to be improving this morning Denies any chest pain or shortness of breath or abdominal pain. Physical Exam Vital Signs: Vital Signs: Last Vital Signs Temp 97.6 F 07/09/22 11:05 Pulse 59 07/09/22 11:05 Resp 20 07/09/22 11:05 BP 138/70 07/09/22 11:05 Pulse Ox 98 07/09/22 11:05 O2 Del Method Room Air 07/09/22 11:05 BMI result Body Mass Index 21.2 Appearance: Alert.? Oriented seems at his baseline? cvs: rrr, [id number] res: clear to auscultation ,no rhonchii or wheezing abd: no rebound or guarding ,nt, bs present. ext pulses present , no cyanosis . neuro: nonfocal. Objective Data Active Medications Acetaminophen (Acetaminophen 325 Mg Tablet) 650 mg PO Q6H PRN PRN Reason: Pain, Mild (Pain Scale 1-3) Amiodarone HCl (Amiodarone Hcl 200 Mg Tablet) 200 mg PO DAILY [facility]S [facility]CLUDE 234 BEDS AT THE [facility] Last Admin: 07/09/22 09:58 Dose: 200 mg Documented By: VANESA Apixaban (Apixaban 5 Mg Tablet) 5 mg PO BID COUNTS INCLUDE 234 BEDS AT THE [facility] Last Admin: 07/09/22 09:59 Dose: 5 mg Documented By: VANESA Aspirin (Aspirin 81 Mg Tab.Chew) 81 mg PO DAILY COUNTS INCLUDE 234 BEDS AT THE [facility] Last Admin: 07/09/22 09:59 Dose: 81 mg Documented By: VANESA Atorvastatin Calcium (Atorvastatin Calcium 40 Mg Tablet) 40 mg PO BEDTIME COUNTS INCLUDE 234 BEDS AT THE [facility] Carvedilol (Carvedilol 3.125 Mg Tablet) 3.125 mg PO BID COUNTS INCLUDE 234 BEDS AT THE [facility]; Protocol Last Admin: 07/09/22 09:58 Dose: 3.125 mg Documented By: VANESA Docusate Sodium (Docusate Sodium 100 Mg Capsule) 100 mg PO DAILY PRN PRN Reason: Constipation Memantine (Memantine Hcl 10 Mg Tablet) 10 mg PO BID COUNTS INCLUDE 234 BEDS AT THE [facility] Last Admin: 07/09/22 09:59 Dose: 10 mg Documented By: VANESA Multivitamins/Vitamin C (Multivitamin Tablet) 1 tab PO DAILY COUNTS INCLUDE 234 BEDS AT THE [facility] Last Admin: 07/09/22 09:58 Dose: 1 tab Documented By: VANESA Ondansetron HCl (Ondansetron Hcl 4 Mg/2 Ml Vial) 4 mg IVPUSH Q8H PRN PRN Reason: Nausea and Vomiting Labs 07/09/22 05:39 07/09/22 05:39 Labs: Laboratory Results - last 24 hr 07/08/22 07/08/22 07/08/22 16:25 16:25 16:25 MCV 98.2 H MCH 32.1 MCHC 32.7 RDW 12.9 Plt Count 200 MPV 10.7 Immature Gran % (Auto) 0.4 Neut % (Auto) 73.3 H Lymph % (Auto) 11.9 L [place] % (Auto) 10.5 Eos % (Auto) 3.4 Baso % (Auto) 0.5 Lymph # (Auto) 0.7 L [place] # (Auto) 0.6 Eos # (Auto) 0.2 Baso # (Auto) 0.0 Abs Immat Gran (auto) 0.02 Absolute Neuts (auto) 4.1 Absolute Nucleated RBC 0.000 Nucleated RBC % (auto) 0.0 PT INR APTT Anion Gap 13 Estim Creat Clear Calc 40.3 Estimated GFR 53 Random Glucose 105 Calcium 9.5 Total Bilirubin 1.3 H Direct Bilirubin 0.4 AST 23 ALT 11 Alkaline Phosphatase 130 H Troponin I High Sens 8.7 B-Natriuretic Peptide Total Protein 6.4 L Albumin 4.1 Triglycerides Cholesterol LDL Cholesterol, Calc HDL Cholesterol Urine Color Urine Appearance Urine pH Ur Specific [place] Urine Protein Urine Glucose (UA) Urine Ketones Urine Blood Urine Nitrite Ur Leukocyte Esterase 07/08/22 07/08/22 07/08/22 16:25 16:25 19:28 MCV MCH MCHC RDW Plt Count MPV Immature Gran % (Auto) Neut % (Auto) Lymph % (Auto) [place] % (Auto) Eos % (Auto) Baso % (Auto) Lymph # (Auto) [place] # (Auto) Eos # (Auto) Baso # (Auto) Abs Immat Gran (auto) Absolute Neuts (auto) Absolute Nucleated RBC Nucleated RBC % (auto) PT 13.6 H INR 1.2 H APTT 30.2 Anion Gap Estim Creat Clear Calc Estimated GFR Random Glucose Calcium Total Bilirubin Direct Bilirubin AST ALT Alkaline Phosphatase Troponin I High Sens 11.6 B-Natriuretic Peptide 84 Total Protein Albumin Triglycerides Cholesterol LDL Cholesterol, Calc HDL Cholesterol Urine Color Urine Appearance Urine pH Ur Specific [place] Urine Protein Urine Glucose (UA) Urine Ketones Urine Blood Urine Nitrite Ur Leukocyte Esterase 07/08/22 07/09/22 07/09/22 21:15 05:39 05:39 MCV 99.5 H MCH 32.9 MCHC 33.1 RDW 13.0 Plt Count 183 MPV 11.5 Immature Gran % (Auto) 0.3 Neut % (Auto) 72.1 Lymph % (Auto) 11.7 L [place] % (Auto) 10.5 Eos % (Auto) 4.9 H Baso % (Auto) 0.5 Lymph # (Auto) 0.8 L [place] # (Auto) 0.7 Eos # (Auto) 0.3 Baso # (Auto) 0.0 Abs Immat Gran (auto) 0.02 Absolute Neuts (auto) 4.7 Absolute Nucleated RBC 0.000 Nucleated RBC % (auto) 0.0 PT INR APTT Anion Gap 13 Estim Creat Clear Calc 60.8 Estimated GFR > 60 Random Glucose 90 Calcium 8.8 D Total Bilirubin Direct Bilirubin AST ALT Alkaline Phosphatase Troponin I High Sens B-Natriuretic Peptide Total Protein Albumin Triglycerides Cholesterol LDL Cholesterol, Calc HDL Cholesterol Urine Color Yellow Urine Appearance Clear Urine pH 6.5 Ur Specific [place] 1.015 Urine Protein Negative Urine Glucose (UA) Negative Urine Ketones 15 Urine Blood Negative Urine Nitrite Negative Ur Leukocyte Esterase Negative 07/09/22 05:39 MCV MCH MCHC RDW Plt Count MPV Immature Gran % (Auto) Neut % (Auto) Lymph % (Auto) [place] % (Auto) Eos % (Auto) Baso % (Auto) Lymph # (Auto) [place] # (Auto) Eos # (Auto) Baso # (Auto) Abs Immat Gran (auto) Absolute Neuts (auto) Absolute Nucleated RBC Nucleated RBC % (auto) PT INR APTT Anion Gap Estim Creat Clear Calc Estimated GFR Random Glucose Calcium Total Bilirubin Direct Bilirubin AST ALT Alkaline Phosphatase Troponin I High Sens B-Natriuretic Peptide Total Protein Albumin Triglycerides 58 Cholesterol 125 LDL Cholesterol, Calc 78 HDL Cholesterol 36 Urine Color Urine Appearance Urine pH Ur Specific [place] Urine Protein Urine Glucose (UA) Urine Ketones Urine Blood Urine Nitrite Ur Leukocyte Esterase Assessment and Plan (1) Alzheimer's dementia: Status: Acute (2) Complex partial seizure disorder: Status: Acute (3) Ataxic gait: Status: Acute Plan 81-year-old male with history of mild Alzheimer's dementia, hypertension, history of CAD, presents to the hospital with complaints of ataxic gait ataxic gait ct done and MRI ordered - ? patient on Eliquis will continue -? increased statin to 40 mg neuro recomended -possible partial complex seizure : added eeg,1st EEG is negative, ambulatory long-term EEG can be considered as an outpatient. added pt eval. ? CAD-? continue aspirin,? and carvedilol ? paroxysmal AFib-? continue carvedilol, Eliquis Alzheimer's dementia-? continue memantine ?DVT prophylaxis:? Eliquis need for stay -ataxia wrokup and neuro follow up. Time Spent With Patient Time: Total time managing care of this patient today ____ minutes. Quality Stroke Does the patient have a stroke diagnosis?: No VTE Prior VTE?: No VTE Risk Level:: Medical - moderate - high VTE Device Contraindication: Treatment Not Indicated VTE Drug Contraindication: N/A - Med Ordered
[2022-07-09] MEDS: amLODIPine Besylate 2.5 MG TABLET PO (15:50)
--- NOTE | 2022-07-09 16:06 | MHC.CM.PN ---
Reattempted to have pt sign LUIS, pt kept staring at the page and was unable to sign. TOBY explained to the pt and his .
--- NOTE | 2022-07-09 18:19 | PC.NURSE ---
pt refusing to stay in bed/chair. Gait is unsteady. After several failed attempts to redirect patient, an order was placed for 1:1 observation. Sitter currently in room with patient. Will continue to monitor
[2022-07-09] MEDS: Atorvastatin Calcium 40 MG TABLET PO (19:46)
--- NOTE | 2022-07-09 19:49 | PC.NURSE ---
assumed care at 1900, pt noted to have high bp of 200/80 manually. notified. PM meds give earlier than scheduled and will rechecked later. Assessment, pt has no other symptoms.
[2022-07-09] MEDS: guaiFENesin DM 100/10/5 ML 5 ML SYRUP PO (21:47)
[2022-07-10] VITALS (8 sets, daily range): BP systolic 151–178; BP diastolic 67–88; PULSE 54–71; RESP 14–20; TEMP 36.1–36.7; O2SAT 96–99
[2022-07-10] MEDS: diphenhydrAMINE HCL 50 MG/ML VIAL 25 MG IVPUSH (02:21)
[2022-07-10] MEDS: Memantine HCl 10 MG TABLET PO ×2 (09:28→21:47)
[2022-07-10] MEDS: Multivitamin TABLET 1 TAB PO (09:28)
[2022-07-10] MEDS: Aspirin 81 MG TAB.CHEW PO (09:28)
[2022-07-10] MEDS: carvediloL 3.125 MG TABLET PO ×2 (09:28→21:46)
[2022-07-10] MEDS: Apixaban 5 MG TABLET PO ×2 (09:29→21:47)
[2022-07-10] MEDS: Amiodarone HCL 200 MG TABLET PO (09:38)
[2022-07-10] MEDS: amLODIPine Besylate 2.5 MG TABLET PO ×2 (12:46→15:52)
--- NOTE | 2022-07-10 15:07 | PM.DS ---
DS: Providers Provider Date of Service: 07/11/22 Date of admission: 07/09/22 04:34 Date of discharge: 07/11/22 Primary care physician: Gurinder Escoto MD Consults: 07/08/22 23:49 Consult to Neurology Routine Consulting Provider: [facility] Reason for consultation: stroke like symptoms Has provider been notified: No 07/09/22 18:04 Consult for Sitter Routine Reason for consultation: agiatted Has provider been notified: No Attending physician on discharge: Lalitha He Discharging clinician: Lalitha He DS: Diagnosis Discharge Diagnosis (1) Alzheimer's dementia: Status: Acute (2) Complex partial seizure disorder: Status: Acute (3) Ataxic gait: Status: Acute DS: Summary Hospital Course Hospital Course: 81-year-old male with past medical history of paroxysmal AFib on Eliquis, hypertension,? CAD status post stent, mild Alzheimer's dementia, HLD, mitral valve replacement presents to the hospital with complaints of difficulty walking.? patient has mild dementia therefore history is obtained mostly from his .? They said that they were on a walk when suddenly patient started walking strangely leaning to the right, and almost falling.? asks the neighbors for a chair, they sat, called ambulance and came to the hospital.? states that he has had these abnormal leaning to the right ? on and off for the past 4-5 years but this was the worst episode where he was completely leaning to the right which scared her and prompted them to call the ambulance. ? Patient himself denies any headache, no change in vision, no numbness weakness or tingling, no chest pain, no shortness of breath, no abdominal pain, no diarrhea constipation, no urinary symptoms and no lower extremity edema.? Records from [facility] reviewed, patient had Head CT and CT angiogram done in 2021 for stroke-like symptoms, at that time studies were negative.? ?on arrival to the ED patient hemodynamically stable with no significant abnormalities Labs are reviewed and show no significant abnormality, UA negative for acute infection ?given his significant ataxic gait pt will be admitted for fruther evaluation hospital course: Patient came with some weakness with walking-? ataxia : Subsequently had CT head:[id number] diffuse cerebral atrophy, MRI was also done -no new cva,has incidental finding-possible amyloid angiopathy. The focus in the left frontal lobe may be consistent with a small cavernoma.: Seen by Neurology EEG were done - no seizure activity, neurology recommended outpatient ambulatory EEG. Patient seems to be improved now at his baseline and walking similar. Patient's in addition patient possibly has Alzheimer's dementia-mental status seems to be is at his baseline as per the family at bedside. Discussed with the family in detail they want to take patient home with services/PT, they declined rehab. Patient was strongly advised to follow-up with neurology outpatient. plan: neurology recommended outpatient ambulatory EEG amd mri findings: follow up with neurology outpatient. Time Spent with Patient Time attestation: Total time managing care of this patient today ____ minutes. Discharge coordination time: Greater than 30 minutes Quality: Safe Use of Opioids Does Pt have an Active Cancer Diagnosis on the Problem List?: No Quality: Stroke Does the patient have a stroke diagnosis?: No Physical Exam Vital Signs: Vital Signs: Last Vital Signs Temp 97.5 F 07/10/22 11:32 Pulse 65 07/10/22 11:32 Resp 20 07/10/22 11:32 BP 176/78 H 07/10/22 11:32 Pulse Ox 96 07/10/22 11:32 O2 Del Method Room Air 07/10/22 11:32 BMI result Body Mass Index 21.2 Appearance: Alert.? Oriented seems at his baseline? cvs: rrr, [id number] res: clear to auscultation ,no rhonchii or wheezing abd: no rebound or guarding ,nt, bs present. ext pulses present , no cyanosis . neuro:? nonfocal. DS: Data Imaging Chest x-ray: Radiologist's impression: ITS Impressions Chest X-Ray 07/08/22 16:45 IMPRESSION: No focal consolidation Head CT 07/08/22 17:14 IMPRESSION: Subcortical densities in bilateral frontoparietal regions, suspected to be artifactual. Repeat CT scan as clinically warranted. Otherwise, CT evidence of acute intracranial hemorrhage or edematous territorial infarction. Head/Neck CTA 07/09/22 00:02 IMPRESSION: 1. No acute intracranial abnormality. 2. Shelf-like linear filling defect along the anterior wall of the left V3 vertebral artery likely represents an intimal flap from age indeterminate dissection, however without luminal narrowing or mural thickening to suggest intramural hematoma. 3. 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 4. Apparent borderline enlargement of the pulmonary artery up to 3 cm which may be seen in the setting of pulmonary hypertension, noting motion artifact limits diagnostic assessment. Brain MRI 07/09/22 12:14 IMPRESSION: 1. There are no acute bleeds or territorial infarcts. No masses are demonstrated. 2. There are chronic microvascular ischemic changes and there is diffuse volume loss. 3. There are multiple areas of subcortical low gradient signal bilaterally as described above which may be consistent with amyloid angiopathy. The focus in the left frontal lobe may be consistent with a small cavernoma. Discharge Plan Discharge Anticipated Discharge Date/Time: 07/10/22 15:01 Patient Disposition: Home Health Service Discharge Diagnosis: ataxia, generlaised weakness Referrals: [facility] [Outside] - 1 Week Gurinder Escoto MD [Primary Care Provider] - 1 Week Discharge Medications: New amlodipine 5 mg tablet 5 mg PO DAILY Qty: 30 0RF Continued atorvastatin 10 mg tablet 10 mg PO DAILY amiodarone 200 mg tablet 200 mg PO DAILY multivitamin Tablet 1 tab PO DAILY aspirin 81 mg Tablet 81 mg PO DAILY memantine 10 mg Tablet 10 mg PO BID Eliquis 5 mg Tablet 5 mg PO BID carvedilol 3.125 mg tablet 3.125 mg PO BID Discharge Orders: Discharge Order (Routine); Ordered 07/10/22 Ordered By: Lalitha He Diet: Advance to usual diet Activity on Discharge: As tolerated Stand Alone Forms: Patient Portal Discharge page Care Plan Goals: Patient came with some weakness with walking-? ataxia : Subsequently had CT head:[id number] diffuse cerebral atrophy, MRI reviewed : Seen by Neurology and EEG were done - no seizure activity, neurology recommended outpatient ambulatory EEG. Patient seems to be improved now at his baseline and walking similar. Patient's in addition patient possibly has Alzheimer's dementia-mental status seems to be is at his baseline as per the family at bedside. Discussed with the family in detail they want to take patient home with services/PT, they declined rehab. Patient was strongly advised to follow-up with neurology outpatient. Health Concerns: As above. Plan of Treatment: As above. Assessment: As above.
--- NOTE | 2022-07-10 15:22 | P.PNIM_ITS ---
Subjective Subjective Date of Service: 07/11/22 Interval History: uncontrolled htn Review of Systems mental status seems near baseline blood pressure still evelated Physical Exam Vital Signs: Vital Signs: Last Vital Signs Temp 97.5 F 07/10/22 15:13 Pulse 54 07/10/22 15:13 Resp 14 07/10/22 15:13 BP 178/88 H 07/10/22 15:13 Pulse Ox 96 07/10/22 15:13 O2 Del Method Room Air 07/10/22 15:13 BMI result Body Mass Index 21.2 Appearance: Alert.? Oriented seems at his baseline? cvs: rrr, [id number] res: clear to auscultation ,no rhonchii or wheezing abd: no rebound or guarding ,nt, bs present. ext pulses present , no cyanosis . neuro:? nonfocal. Objective Data Active Medications Acetaminophen (Acetaminophen 325 Mg Tablet) 650 mg PO Q6H PRN PRN Reason: Pain, Mild (Pain Scale 1-3) Amiodarone HCl (Amiodarone Hcl 200 Mg Tablet) 200 mg PO DAILY [facility] Last Admin: 07/10/22 09:38 Dose: 200 mg Documented By: RADHA Amlodipine Besylate (Amlodipine Besylate 2.5 Mg Tablet) 2.5 mg PO ONCE ONE; Protocol Stop: 07/10/22 15:22 Amlodipine Besylate (Amlodipine Besylate 5 Mg Tablet) 5 mg PO DAILY [facility]; Protocol Apixaban (Apixaban 5 Mg Tablet) 5 mg PO BID [facility] Last Admin: 07/10/22 09:29 Dose: 5 mg Documented By: RADHA Aspirin (Aspirin 81 Mg Tab.Chew) 81 mg PO DAILY [facility] Last Admin: 07/10/22 09:28 Dose: 81 mg Documented By: RADHA Atorvastatin Calcium (Atorvastatin Calcium 40 Mg Tablet) 40 mg PO BEDTIME [facility] Last Admin: 07/09/22 19:46 Dose: 40 mg Documented By: PREMA Carvedilol (Carvedilol 3.125 Mg Tablet) 3.125 mg PO BID [facility]; Protocol Last Admin: 07/10/22 09:28 Dose: 3.125 mg Documented By: RADHA Docusate Sodium (Docusate Sodium 100 Mg Capsule) 100 mg PO DAILY PRN PRN Reason: Constipation Guaifenesin/Dextromethorphan (Guaifenesin Dm 100/10/5 Ml 5 Ml Syrup) 5 ml PO Q4H PRN PRN Reason: Cough Last Admin: 07/09/22 21:47 Dose: 5 ml Documented By: PREMA Memantine (Memantine Hcl 10 Mg Tablet) 10 mg PO BID [facility] Last Admin: 07/10/22 09:28 Dose: 10 mg Documented By: RADHA Multivitamins/Vitamin C (Multivitamin Tablet) 1 tab PO DAILY [facility] Last Admin: 07/10/22 09:28 Dose: 1 tab Documented By: RADHA Ondansetron HCl (Ondansetron Hcl 4 Mg/2 Ml Vial) 4 mg IVPUSH Q8H PRN PRN Reason: Nausea and Vomiting Labs 07/09/22 05:39 07/09/22 05:39 Assessment and Plan (1) Alzheimer's dementia: Status: Acute (2) Ataxic gait: Status: Acute Plan 81-year-old male with history of mild Alzheimer's dementia, hypertension, history of CAD, presents to the hospital with complaints of ataxic gait ?ataxic gait ct done and MRI noted mri- 1. There are no acute bleeds or territorial infarcts. No masses are demonstrated. ? 2. There are chronic microvascular ischemic changes and there is diffuse volume loss. ? 3. There are multiple areas of subcortical low gradient signal bilaterally as described above which may be consistent with amyloid angiopathy. The focus in the left frontal lobe may be consistent with a small cavernoma. eeg negative - ? patient on Eliquis will continue -? increased statin to 40 mg neuro recomended -possible partial complex seizure : added EEg, ambulatory long- term EEG can be considered as an outpatient. neuro follow up Htn: uncontrolled added amlodipine to coreg. ? CAD-? continue aspirin,? and carvedilol ? paroxysmal AFib-? continue carvedilol, Eliquis ?Alzheimer's dementia-? continue memantine ?DVT prophylaxis:? Eliquis need for stay -uncontrolled htn -still uncontrolled -need bp moniterin,eeg,MRI findings-neuro followup Time Spent With Patient Time: Total time managing care of this patient today ____ minutes. Quality Stroke Does the patient have a stroke diagnosis?: No VTE Prior VTE?: No VTE Risk Level:: Medical - moderate - high VTE Device Contraindication: Treatment Not Indicated VTE Drug Contraindication: N/A - Med Ordered
--- NOTE | 2022-07-10 15:31 | MHC.CM.PN ---
Pt anticipated to D/C home with VNA services tomorrow. Met with pt and his and son, and they are in agreement with plan. Referral made to critical access hospital and they can accept pt. Updated patients and son. Pts to transport home.
[2022-07-10] MEDS: Atorvastatin Calcium 40 MG TABLET PO (21:46)
[2022-07-11 04:00] VITALS: BP 170/85; PULSE 55; TEMP 36.7; O2SAT 92
[2022-07-11 07:28] VITALS: BP 165/77; PULSE 64; RESP 20; TEMP 36.7; O2SAT 95
[2022-07-11] MEDS: Apixaban 5 MG TABLET PO (08:58)
[2022-07-11] MEDS: amLODIPine Besylate 5 MG TABLET PO (08:58)
[2022-07-11] MEDS: Aspirin 81 MG TAB.CHEW PO (08:59)
[2022-07-11] MEDS: Memantine HCl 10 MG TABLET PO (08:59)
[2022-07-11] MEDS: Amiodarone HCL 200 MG TABLET PO (08:59)
[2022-07-11] MEDS: carvediloL 3.125 MG TABLET PO (08:59)
--- NOTE | 2022-07-11 16:13 | W.MHC.F2F ---
Service Date Service Date: 07/11/22 Encounter Date of encounter: 07/11/22 Encounter: Generalized weakness, dementia,close blood pressure monitoring, Reasons for Services Signs and symptoms assessed: Monitor for any new weakness or numbness Reason for intermediate: medication management, medication treatment and teach disease management Reason for physical therapy: home safety and mobility, therapeutic exercises, restore joint function, gait/transfer training, assess need for DME, ADL training, energy conservation and other MD Overseeing Care: Gurinder Escoto Homebound: Leaving the home is medically contraindicated at this time without the asist of a device and/or another person due th the listed conditions above and below. Reason homebound: weakness related to hospital stay Homebound supporting statement: Patient has multiple medical comorbidities including dementia, hypertension and generalized weak need help for close blood pressure monitoring, appointments and PT. Certification: Based on the above findings, I certify that this patient is confined to the home and needs intermittent intermediate care, physical therapy and/or speech therapy, or continues to need occupational therapy. The patient is under my care, and I have initiated the establishment of the plan of care. The patient will be followed by a physician who will periodically review the plan of care. Time Spent With Patient Time: Total time managing care of this patient today ____ minutes.
== END 2022-07-11 16:45 | disposition home health service (06) ==
LOC: HO.ED 07-09 00:15 → HO.EDOVER 07-09 04:38 → HO.IMC 07-09 06:30
PROVIDERS: Physician Assistant; Admitting Provider Internal Medicine; Emergency Provider Emergency Medicine; PCP Family Medicine; Visit Provider Internal Medicine
DX: R26.0 Ataxic gait (principal); R53.1 Weakness; R42 Dizziness and giddiness; G30.9 Alzheimer's disease, unspecified; F02.80 Dementia in other diseases classified elsewhere, unspecified severity, without behavioral disturbance, psychotic disturbance, mood disturbance, and anxiety; I10 Essential (primary) hypertension; E78.5 Hyperlipidemia, unspecified; I48.0 Paroxysmal atrial fibrillation; I25.2 Old myocardial infarction; Z95.4 Presence of other heart-valve replacement; Z79.01 Long term (current) use of anticoagulants; Z79.82 Long term (current) use of aspirin; Z79.02 Long term (current) use of antithrombotics/antiplatelets; Z79.899 Other long term (current) drug therapy
CPT/HCPCS: 36415; 70450; 70496; 70498; 70551; 71045; 80048; 80061; 80076; 81003; 83880; 84484; 85025; 85610; 85730; 93005; 95816; 96360; 96361; 96374; 96375; 97116; 97162; 97166; 97530; 97535; 99222; 99285; J1200; Q9967

== ENCOUNTER 2023-11-05 05:29 | Emergency (ER) | payer MEDICARE, SELFPAY ==
[2023-11-05] VITALS (8 sets, daily range): BP systolic 139–193; BP diastolic 80–101; PULSE 51–80; RESP 12–20; TEMP 36.4–37.1; O2SAT 95–98; BMI 19.2
--- NOTE | 2023-11-05 | ECG_ITS ---
Test Reason : CHEST PX Blood Pressure : / mmHG Vent. Rate : 076 BPM Atrial Rate : 241 BPM P-R Int : 000 ms QRS Dur : 114 ms QT Int : 406 ms P-R-T Axes : 000 -63 039 degrees QTc Int : 456 ms Atrial flutter with variable A-V block with premature ventricular or aberrantly conducted complexes Left axis deviation Minimal voltage criteria for LVH, may be normal variant ( Mcgregor product ) Inferior infarct , age undetermined Anteroseptal infarct , age undetermined Abnormal ECG When compared with ECG of 08-JUL-2022 16:29, (RBBB and left anterior fascicular block) is no longer Present Anteroseptal infarct is now Present Inferior infarct is now Present Referred By: Generic ED Physician Electronically Signed By:BENJI TOMLIN
--- NOTE | ~2023-11-05 | XR_ITS ---
EXAMINATION: XR CHEST CLINICAL INFORMATION: Cough altered mental status COMPARISON: Chest radiograph from 07/08/2022 TECHNIQUE: Frontal view of the chest was obtained. FINDINGS: Chronic interstitial lung markings. No pneumothorax. Trachea is midline. Sternotomy wires with valvular calcifications and replacement. Cardiomediastinal silhouette is stable. No large pleural effusion. Osseous structures are intact. Soft tissues are unremarkable. XR/XR chest 1V IMPRESSION: Chronic interstitial lung markings. Electronically signed by: Yelena Barroso MD 11/05/2023 08:22 AM EDT
--- NOTE | ~2023-11-05 | CT_ITS ---
EXAMINATION: CT HEAD WITHOUT CONTRAST CLINICAL INFORMATION: Change in mental status COMPARISON: Right brain from 07/09/2022, CT angiogram head from 07/08/2022 TECHNIQUE: Contiguous axial imaging was performed from the skull base to vertex without intravenous administration of contrast. This CT examination was performed using dose optimization techniques as appropriate, variously including the following: *Automated exposure control *Adjustment of mA and/or kV according to patient size (this includes techniques or standardized protocols for targeted exams where dose is matched to indication/reason for exam; i.e. extremities or head) *Use of iterative reconstruction technique DLP: 968 mGy-cm FINDINGS: There is no evidence of acute intracranial hemorrhage or territorial infarction. Chronic white matter small vessel ischemic changes. Cerebral atrophy with commensurate ventricular changes. No abnormal mass effect or midline shift is seen. Boateng to white matter differentiation is well preserved. No extra-axial fluid collections are identified. There is no abnormal attenuation within the brain parenchyma. The osseous structures and soft tissues are normal. Trace fluid right mastoid air cells. The mastoid air cells and visualized portions of the paranasal sinuses are well aerated. Atherosclerotic calcifications. CT/CT head/brain wo IV con IMPRESSION: 1. No acute intracranial pathology. 2. Chronic white matter small vessel ischemic changes. Electronically signed by: Yelena Barroso MD 11/05/2023 10:19 AM EDT
--- NOTE | 2023-11-05 05:45 | ED.GENADULT ---
HPI - General Adult General Chief complaint: Altered Mental Status Stated complaint: not himself 2x days only responds verbally Time Seen by Provider: 11/05/23 05:44 Source: patient, family and EMS Mode of arrival: EMS Limitations: other History of Present Illness ED Provider: Dr. Rita Kapoor HPI narrative: Patient comes to the emergency room via ambulance from home. Patient's who is the patient's primary pay agent states that the patient seems to be a bit more confused than usual, not himself. At baseline, patient does not talk much. However, the patient's states that she can not pinpoint what is going on but does not seem as active as usual. Patient able to answer yes no questions, denies any chest pain or shortness of breath, no abdominal pain, no dysuria. Related Data Home Medications ?Medication ?Instructions ?Recorded ?Confirmed amiodarone 200 mg tablet 200 mg PO DAILY 07/09/22 07/09/22 apixaban 5 mg tablet (Eliquis) 5 mg PO BID 07/09/22 07/09/22 aspirin 81 mg tablet 81 mg PO DAILY 07/09/22 07/09/22 atorvastatin 10 mg tablet 10 mg PO DAILY 07/09/22 07/09/22 carvedilol 3.125 mg tablet 3.125 mg PO BID 07/09/22 07/09/22 memantine 10 mg tablet 10 mg PO BID 07/09/22 07/09/22 multivitamin 1 tab PO DAILY 07/09/22 07/09/22 Previous Rx's ?Medication ?Instructions ?Recorded amlodipine 5 mg tablet 5 mg PO DAILY #30 tabs 07/11/22 Allergies Allergy/AdvReac Type Severity Reaction Status Date / Time metoprolol [Metoprolol] Allergy Intermediate RASH Verified 11/05/23 05:44 cephalexin [Cephalexin] Allergy Unknown UNKNOWN Verified 11/05/23 05:44 ciprofloxacin [From Cipro] Allergy Unknown UNKNOWN Verified 11/05/23 05:44 Sulfa Allergy Unknown Unknown Uncoded 07/08/22 16:03 Review of Systems Review of Systems: Yes Other (Limited, patient has dementia) [facility] Past Medical History Medical History Alzheimer's dementia Paroxysmal A-fib HLD (hyperlipidemia) Hypertension CAD (coronary artery disease) Myocardial infarction Surgical History H/O mitral valve replacement Social History Social History Household Members: Spouse Housing: House Do you presently have visiting nurse or other home services: No Alcohol intake: current Alcohol intake frequency: 0-2 drinks per day Alcohol type: beer and hard liquor Comment: 1:1 Patient Tobacco Use Status: Never used Tobacco Smoked in Last 30 Days: No Use of substances other than those prescribed or required for medical reasons: No Advance Directives: No Advance Directives Information Provided: Yes service: No Current occupational status: retired Physical Exam ED Vital Signs: Vital Signs - 24 hr 11/05/23 05:42 11/05/23 05:55 Temperature 98.8 F Pulse Rate 78 79 Respiratory Rate 12 20 Blood Pressure 193/101 H 183/85 H Pulse Oximetry 97 97 Oxygen Delivery Method Room Air Room Air BMI result Body Mass Index 19.2 Const Other: Appearance: Alert. No acute distress. Patient not talking much, answers yes /no questions almost whispering, per this is his baseline Eyes: Pupils equal, round and reactive to light. ENT: Pharynx normal. Neck: Normal inspection. Neck supple. No lymph nodes noted. No crepitus CVS: Irregularly irregular, heart rate controlled in the 70s to 80s: Pulses normal. Normal S1 and S2 Respiratory: No respiratory distress. Breath sounds normal. No Wheezing. No rales Abdomen: Soft and nontender. No rigidity. No distention. Skin: Skin warm and dry. Normal skin color. Normal skin turgor. Extremities: No lower extremity edema. No Lacerations. No Rash Neuro:No motor deficit. No sensory deficit. Moving all extremities. No slurred speech. CN 2 through 12 grossly intact Psych: calm, cooperative, normal affect Course Course Course Narrative: -patient has no complaints -all of patient's labs and imaging pending Medical Decision Making Medical Decision Making MDM Narrative: -my interpretation of EKG: Atrial flutter, heart rate 76, no ST segment depression or elevation, no T-wave inversion, QTC 456 -my interpretation of labs, normal white blood cell count and at baseline hematology, venous blood gases within normal limits, lactic acid normal -patient's systolic blood pressure between [id number]. Patient was given his p.o. medications, carvedilol 6.25 mg, hydrochlorothiazide 25 mg, losartan 50 mg. -Seems that patient was recently taken off amlodipine 10 mg. Which was not given to the patient -chemistry , ETOH, serology and urinalysis pending -chest x-ray pending -sign-out given to my colleague Dr. Cota Differential Diagnosis Differential Diagnoses: The differential diagnosis associated with the presentation includes (Viral illness, deconditioning) Lab Data 11/05/23 06:20 11/05/23 06:20 Labs: Lab Results 11/05/23 11/05/23 Range/Units 06:20 06:25 WBC 8.0 (4.8-10.8) X10*3/uL RBC 4.61 (4.60-5.80) X10*6/uL Hgb 15.5 (14.0-18.0) g/dl Hct 45.2 (42.0-52.0) % MCV 98.0 (80.0-98.0) fL MCH 33.6 H (27.0-33.0) pg MCHC 34.3 (31.0-36.0) g/dl RDW 13.5 (11.0-16.0) % Plt Count 186 (160-400) X10*3/uL MPV 10.2 (9.4-12.4) fL Immature Gran % (Auto) 0.3 (0.0-0.4) % Neut % (Auto) 77.9 H (45-73) % Lymph % (Auto) 10.7 L (20-40) % [place] % (Auto) 8.7 (2-11) % Eos % (Auto) 2.1 (0-4) % Baso % (Auto) 0.3 (0-2) % Lymph # (Auto) 0.9 L (1.2-4.9) X10*3/uL [place] # (Auto) 0.7 (0.1-1.2) X10*3/uL Eos # (Auto) 0.2 (0.0-0.4) X10*3/uL Baso # (Auto) 0.0 (0.0-0.2) X10*3/uL Abs Immat Gran (auto) 0.02 (0.00-0.03) X10*3/uL Absolute Neuts (auto) 6.2 (2.0-8.3) x10*3/uL Absolute Nucleated RBC 0.000 (0.0-0.012) X10*3/uL Nucleated RBC % (auto) 0.0 (0.0-0.2) /100WBC PT 12.2 (11.1-13.3) SEC INR 1.0 (0.9-1.1) VBG pH 7.42 (7.32-7.43) VBG pCO2 42 mmHg VBG pO2 43 mmHg VBG HCO3 28 H (22-26) mmol/L VBG O2 Saturation 78.0 % VBG Base Excess 3.4 mmol/L Sodium 138 (135-145) mmol/L Potassium 4.4 (3.3-5.1) mmol/L Chloride 103 (96-108) mmol/L Carbon Dioxide 26 (22-29) mmol/L Anion Gap 13 (12-20) BUN 10 (9-16) mg/dL Creatinine 1.00 (0.5-1.4) mg/dL Estim Creat Clear Calc 47.6 Estimated GFR > 60 Random Glucose 122 H (60-115) mg/dL Lactic Acid 1.1 (0.5-2.0) mmol/L Calcium 9.2 (8.4-10.2) mg/dL Magnesium 1.9 (1.6-2.6) mg/dL Total Bilirubin 1.1 H (0.0-1.0) mg/dL Direct Bilirubin 0.4 (0.0-0.5) mg/dL AST 21 (5-37) U/L ALT 8 (0-40) U/L Alkaline Phosphatase 109 (39-117) U/L Troponin I High Sens 11.9 (<3.5-35.0) ng/L Total Protein 6.4 L (6.5-8.0) g/dL Albumin 3.8 (3.5-5.0) g/dL Ethyl Alcohol < 10 mg/dL Discharge Plan Discharge Clinical Impression: Hypertension Patient Disposition: Still a Patient Prescriptions: No Action atorvastatin 10 mg tablet 10 mg PO DAILY amiodarone 200 mg tablet 200 mg PO DAILY multivitamin Tablet 1 tab PO DAILY aspirin 81 mg Tablet 81 mg PO DAILY memantine 10 mg Tablet 10 mg PO BID Eliquis 5 mg Tablet 5 mg PO BID carvedilol 3.125 mg tablet 3.125 mg PO BID amlodipine 5 mg tablet 5 mg PO DAILY Qty: 30 0RF Print Language: [place]
[2023-11-05 06:24] LABS: Venous Blood Gas Refer to POC result
[2023-11-05 06:29] LABS: MANUAL DIFF FLAG NO
[2023-11-05 06:31] LABS: VBG Base Excess 3.4 mmol/L; VBG HCO3 28 mmol/L (22-26); VBG pCO2 42 mmHg; VBG pH 7.42 (7.32-7.43); VBG pO2 43 mmHg
[2023-11-05 06:31] LABS: Basophils Percent Auto 0.3 % (0-2); Eosinophils Absolute Auto 0.2 X10*3/uL (0.0-0.4); Eosinophils Percent Auto 2.1 % (0-4); Hematocrit 45.2 % (42.0-52.0); Hemoglobin 15.5 g/dl (14.0-18.0); Imm Gran Abs Auto 0.02 X10*3/uL (0.00-0.03); Imm Gran Pct Auto 0.3 % (0.0-0.4); Lymphocytes Absolute Auto 0.9 X10*3/uL (1.2-4.9); Lymphocytes Percent Auto 10.7 % (20-40); Mean Corpuscular HGB Conc 34.3 g/dl (31.0-36.0); Mean Corpuscular Hemoglobin 33.6 pg (27.0-33.0); Mean Platelet Volume 10.2 fL (9.4-12.4); Monocytes Absolute Auto 0.7 X10*3/uL (0.1-1.2); Monocytes Percent Auto 8.7 % (2-11); Neutrophils Absolute Auto 6.2 x10*3/uL (2.0-8.3); Neutrophils Percent Auto 77.9 % (45-73); Platelet Count 186 X10*3/uL (160-400); Red Blood Count 4.61 X10*6/uL (4.60-5.80); Red Cell Distribution Width 13.5 % (11.0-16.0)
[2023-11-05 06:42] LABS: Lactic Acid 1.1 mmol/L (0.5-2.0)
[2023-11-05 06:44] LABS: Prothrombin Time 12.2 SEC (11.1-13.3)
[2023-11-05 06:52] LABS: Alanine Aminotransferase 8 U/L (0-40); Albumin Level 3.8 g/dL (3.5-5.0); Alkaline Phosphatase 109 U/L (39-117); Anion Gap 13 (12-20); Aspartate Amino Transferase 21 U/L (5-37); Bilirubin Direct 0.4 mg/dL (0.0-0.5); Bilirubin Total 1.1 mg/dL (0.0-1.0); Blood Urea Nitrogen 10 mg/dL (9-16); Calcium 9.2 mg/dL (8.4-10.2); Carbon Dioxide 26 mmol/L (22-29); Chloride 103 mmol/L (96-108); Creatinine Clr Calc Pharmacy 47.6; Estimated Glomerular Filt Rate > 60; Ethanol < 10 mg/dL; Glucose Random 122 mg/dL (60-115); Magnesium 1.9 mg/dL (1.6-2.6); Potassium 4.4 mmol/L (3.3-5.1); Sodium 138 mmol/L (135-145); Total Protein 6.4 g/dL (6.5-8.0); Troponin-I High Sensitivity 11.9 ng/L (<3.5-35.0)
[2023-11-05 07:15] LABS: Influenza A PCR NEGATIVE (Negative); Influenza B PCR NEGATIVE (Negative); Resp Syncy Virus RNA Qual PCR NEGATIVE (Negative); SARS COV2 PCR INHOUSE NEGATIVE (Negative)
[2023-11-05] MEDS: carvediloL 6.25 MG TABLET PO (07:54)
[2023-11-05] MEDS: hydroCHLOROthiazide 25 MG TABLET PO (07:54)
[2023-11-05] MEDS: Losartan Potassium 50 MG TABLET PO (07:54)
--- NOTE | 2023-11-05 08:04 | PC.NURSE ---
Pt is alert, only answering some questions so difficult to assess if oriented x 3. Wif at bedside states not talking more so since yesterday. Denies falls. Skin pwd. Breathing easy and unlabored. A flutter on tele. Plan for head CT and Ammonia level, urine needed
[2023-11-05 08:17] LABS: Ammonia 27 umol/L (13-55)
[2023-11-05 08:39] LABS: Appearance Urine Clear; Color Urine Yellow; Glucose Urine UA Negative (Negative); Leukocyte Esterase Urine Negative (Negative); Nitrite Urine Negative (Negative); Specific Gravity - Urine 1.015 (1.005-1.025); Urine Blood Negative (Negative); Urine Ketones Negative (Negative); Urine Protein Negative (Neg-Trace)
--- NOTE | 2023-11-05 15:02 | MHC.CM.ED ---
Addendum entered by Isi Vigil 11/05/23 15:06: Correction: Patient's son's name is Kendell. Kendell states patient has not been an elopement risk. Original Note: Received case management consult from Dr Cota. Patient originally came to the ER due to AMS. Work up essentially negative. Patient cleared by Care Team. Patient was going to be d/c'd home with but there were concerns about patient's and 's orientation. Patient's son, David, came to the ER and felt patient was not safe to go home. Both of his parents have a history of dementia. Physical therapy eval completed. [facility] care is recommended. Met with patient, Patsy and son David. Patient lives with Patsy. Per David, both have been getting progressively more confused. David has already been starting to look into LTC. David lives in [facility] and knows both of his parents will need LTC placement. David is struggling between placing parents in [facility] or current area. David agreeable to referrals being made to both the [place] and [facility]. Patient will be private pay. Copy of HCP obtained from [facility]. Patient's PCP verified as Dr Escoto. Continue to monitor for d/c needs.
--- NOTE | 2023-11-05 15:34 | PC.NURSE ---
Pt presents to overflow with family at bedside. Pt is alert, oriented to person only, speaks in a whisper, hard to hear. Family reports pt has hx of dementia but has become increasingly worse today, more confused and has periods of agitation. Pt noted to trying to get out of bed continually, continually needs to be redirected by staff or family. Pt given reading material and TV for activities and has some improvements. 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
[2023-11-05] MEDS: OLANZapine 2.5 MG TABLET PO (15:48)
--- NOTE | 2023-11-05 15:51 | PHA.MEDREC ---
Addendum entered by Carmencita Chairez 11/05/23 20:20: patient son brought in patients medication bottles. Went back down to speak to him again. All the bottles that son had were completely full. Eliquis 5 mg was dated 09/19/22 and the bottle was full, didn't look like any was taken. Same as Memantine 10 mg was dated 02/09/23 was full, didn't look like any was taken. made pharmacist aware. Addendum entered by Tania Perkins RPh 11/05/23 16:16: Med rec was reviewed by [facility]. Original Note: Pharmacy Consult ? Medication Reconciliation Pharmacy has completed the medication reconciliation. Spoke to family at bedside. Son states patient is not very good at taking his medications and is not sure if patient takes them when he is suppose to. Son stated patient is no longer taking Amiodarone 200 mg and Multivitamins. Son said patient does take Eliquis 5 mg bid, however there is no claims. Called [facility] and confirm last fill date was 09-19-22 for 90 days, also Memantine 10 mg bid was last filled 02/09/23 for 90 days. Left Eliquis Unconfirmed and will notify the
--- NOTE | 2023-11-05 16:10 | PC.NURSE ---
Pt medicated per MAR for restlessness/ agitation. Pt takes meds well with pudding. Pt also cleaned of incontinence, bed changed. Pt watching TV at this time, appears more calm. Will continue to monitor.
--- NOTE | 2023-11-05 16:32 | PC.NURSE ---
Camera placed on pt due to trying to get out of bed
--- NOTE | 2023-11-05 17:09 | MHC.EDTECH ---
this tech and RN cleaned patient up and got him into clean clothes and bed linens. pt is at rest watching tv, waiting for dinner tray. pt seems less likely to try to get OOB when tv is on or reading. camera is in place, will continue to monitor.
--- NOTE | 2023-11-05 17:57 | MHC.EDTECH ---
pt was trying to climb OOB, this tech and RN changed him and got him comfortable, condom catheter in place for incontinence, RN aware
--- NOTE | 2023-11-05 17:58 | PC.NURSE ---
requested and is at bedside with pt
--- NOTE | 2023-11-05 21:51 | MHC.CM.ED ---
Addendum entered by Marita Dave 11/05/23 21:59: Son, Kendell ([phone]). Original Note: CM met with son and . Pt sleeping. [facility]. Son is now thinking about assisted living for both of his parents. CM explained that facilities will be notified that son is considering bed offers. Enc son to research [facility], as LTC beds will not be held indefinitely. Lisiting given of [facility] that provide advanced memory care, as he father needs total care and feeding. Explained that when speaking with [facility], son needs to ask if they can care for a patient with advanced dementia. Also explained that this father would be in a memory care unit and would not live with his mother. They acknowledge understanding. Son feels mother would benefit from an [facility]. would like to be in same facility as her so she can visit him. CM will reach out to son tomorrow regarding decision for either LTC or [facility]. They will private pay. CM following for safe discharge planning.
[2023-11-05] MEDS: OLANZapine 5 MG TABLET PO (23:14)
[2023-11-06 04:40] VITALS: BP 136/106; PULSE 85; RESP 18; TEMP 36.4; O2SAT 96
--- NOTE | 2023-11-06 10:06 | PC.NURSE ---
family at bedside, case management met with patient and family. patient continues to rest quietly in the room, provided with water. patient not responding to many questions.
--- NOTE | 2023-11-06 11:55 | PC.NURSE ---
patient's son requesting to speak with case management about potential for hospice care vs the ferry terminal agent care. reports decompensation in patient, no longer speaking at all to family, no longer eating or drinking even with assistance and encouragement. patient does not appear in any distress, family remains at the bedside.
--- NOTE | 2023-11-06 14:23 | MHC.CM.ED ---
Addendum entered by Liz Avalos 11/06/23 15:50: Son is now requesting EXTRUSION MACHINE OPERATOR referrals to be extended to CT as well. He states he will review the facilities that have extended an offer and discuss w/family to see if it is a good facility fit. Kendell feels pt being closer to him will be best for visiting. [facility] CT referrals made: Pt and family meeting w/[facility] at this time. Addendum entered by Liz Avalos 11/06/23 14:36: NAVNEET from Dr. Escoto's office to be faxed to ED CM station Original Note: Met w/pt, spouse Patsy and son Kendell multiple times during the day to review d/c plans. Family concerned w/pt's abrupt change in condition: pt is not verbal and will not take any po. They state he is sleeping much of the time and grasping in the air. ED workup was not revealing of acute condition. ED PA met with pt family and they would like to shift goals of care to EXTRUSION MACHINE OPERATOR at this time. They would like SNF referrals made locally as pt is from [place]. Referrals updated to reflect SNF / EXTRUSION MACHINE OPERATOR placement. Family will still pay privately and are willing to meet with [facility] for additional information although home w/Hospice is not an option. ED CM to follow
--- NOTE | 2023-11-06 14:25 | PC.NURSE ---
provider and case management in to speak with patient/family. plan going forward of comfort measures only. patient changed and repositioned in the room, no obvious signs/symptoms of distress noted.
[2023-11-06 14:52] VITALS: RESP 20
--- NOTE | 2023-11-06 14:58 | PC.NURSE ---
Addendum entered by Radha Quinn 11/06/23 14:58: *mildred Original Note: call placed to pharmacy for gaby
[2023-11-06] MEDS: Glycopyrrolate 0.2 MG/ML VIAL IVPUSH (15:48)
--- NOTE | 2023-11-06 18:14 | PC.NURSE ---
continues to rest quietly in room with no obvious signs/symptoms of distress noted. extra pillow provided, repositioned in the bed. respirations even and unlabored with eyes closed. camera remains in place.
--- NOTE | 2023-11-06 19:30 | PC.NURSE ---
This RN assumed pt care @ 1900. Pt resting, no signs of distress. Pts family at bedside. Plan of care ongoing.
--- NOTE | 2023-11-06 19:49 | PC.NURSE ---
Family no longer at bedside.
--- NOTE | 2023-11-06 20:23 | PC.NURSE ---
Pt ca&ox4, no signs of distress Pt denies pain at this time. Plan of care ongoing.
--- NOTE | 2023-11-06 21:40 | PC.NURSE ---
Pt resting in bed comfortably, no signs of distress. Pt asked by this RN if he needed anything and patient responded No Plan of care ongoing.
[2023-11-06 22:00] VITALS: BP 132/86; PULSE 113; RESP 20; TEMP 36.9; O2SAT 95
--- NOTE | 2023-11-06 22:41 | PC.NURSE ---
Wrecker Driver assumed pt care @2200. Pt resting comfortably in bed, repositioned to his R side.No signs of distress. Plan of care ongoing.
[2023-11-07 06:00] VITALS: BP 140/90; PULSE 118; RESP 24; TEMP 36.5; O2SAT 94
--- NOTE | 2023-11-07 06:28 | PC.NURSE ---
Pt changed and repositioned to his L side. Denies having any pain, took 2 sips of water, refused drinking more water. plan of care ongoing.
--- NOTE | 2023-11-07 10:28 | PC.NURSE ---
PO meds not given as patient is unable to tolerate any water at this time.
[2023-11-07 14:00] VITALS: BP 198/93; PULSE 101; RESP 20; TEMP 36.9; O2SAT 94
--- NOTE | 2023-11-07 16:50 | PC.NURSE ---
patient does not appear to be in any acute distress throughout this shift. VSAJ Evans is aware of his most recent set of vitals. He does respond to simple questions and denies any pain at this time. His brief has been dry all shift and he has been turned and repositioned several times by staff.
--- NOTE | 2023-11-07 18:21 | MHC.EDTECH ---
this tech and DAMEON Moncada provided the pt with clean sheets and hospital gown, pt was cleaned and is dry and warm. pt jimbo Rdz bringing in briefs for pt to use for incontinence.
--- NOTE | 2023-11-07 18:49 | MHC.EDTECH ---
brief put on pt, pt is comfortable, all needs met at this time
--- NOTE | 2023-11-07 20:52 | PC.NURSE ---
pt repositioned onto L side. warm blanket given. pt is dry at this time.
[2023-11-07 22:00] VITALS: PULSE 62
--- NOTE | 2023-11-08 02:22 | PC.NURSE ---
RN assumed pt care @2300. Patient inc. urine, changed and repositioned to his R side, Denies having pain. Call garcia within reach. Plan of care ongoing.
--- NOTE | 2023-11-08 02:34 | MHC.EDTECH ---
patient incontinent at 0230 brief and gown changed. 2a repo total care
[2023-11-08 06:00] VITALS: RESP 18
[2023-11-08] MEDS: Memantine HCl 10 MG TABLET PO ×2 (08:50→20:51)
--- NOTE | 2023-11-08 09:25 | PC.NURSE ---
Initial contact with pt. pt fed meal tray by staff, ate only yogurt and juice. pt checked for incontinence, dry at this time.
--- NOTE | 2023-11-08 13:30 | MHC.CM.PN ---
CM met with pt and family on 11/07/23, family said they would like to have pt. go home with hospice services. [facility] hospice had already received referral and come to see family. CM sent a message to [facility] via [employer] to say that family would like to bring pt home. CM explained process to family and that they would need to provide care (vs if pt was in a SNF) and to think about family and private care for pt at home in addition to hospice. CM received a message from Hospice dated 11/06, saying they were going to reach out to family. Today, CM went to see family and pt. and asked if they had heard from Hospice, they said they had not, but it may have been the son who lives in [place] who got a call. They said they want to see the doctor, because pt is doing better, eating and talking with them. CM relayed this message to pt.'s nurse in overflow.
[2023-11-08 15:04] VITALS: BP 173/72; PULSE 122; RESP 15; O2SAT 94
--- NOTE | 2023-11-08 15:51 | PC.NURSE ---
Staff repositioned patient for comfort, checked for incontinence. blankets and socks applied.
[2023-11-08 18:51] VITALS: BP 160/103; PULSE 121; RESP 16; O2SAT 94
--- NOTE | 2023-11-08 19:18 | PC.NURSE ---
Assumed care of pt. vvvvvvvvvvvvvvvvvv
[2023-11-08] MEDS: Docusate Sodium 100 MG CAPSULE PO (20:51)
[2023-11-08 22:00] VITALS: RESP 16
--- NOTE | 2023-11-09 01:06 | PC.NURSE ---
Assumed care of pt @2300 . Pt repositioned to his R side. Warm blanket given denies pain. camera in room. Plan of care ongoing.
[2023-11-09 05:23] VITALS: RESP 14
[2023-11-09] MEDS: Memantine HCl 10 MG TABLET PO ×2 (09:08→22:25)
--- NOTE | 2023-11-09 09:38 | MHC.CM.ED ---
Addendum entered by Isi Vigil 11/09/23 12:49: Kendell requested referral to [facility] in [place]. This facility is an assisted living facility. Kendell made aware he will have to contact them. Addendum entered by Isi Vigil 11/09/23 09:49: Kendell requested referral to [facility]. Referral was already made. No response yet. T/W spoke with facility via telephone. They have no beds available. Original Note: Patient remains in ER overflow. Spoke with patient's son, Kendell, via telephone at [phone]. Family would be interested in hospice at home if patient's life expectancy would be about a week. Since it does not appear to be a reasonable time frame, Kendell feels hospice at a facility will be necessary. The following facilities might be able to offer a bed for patient: [facility], [facility], [facility], [facility] in [place], [facility] in [place], [facility] in [place], [facility] [place], [facility], [facility], [facility], [facility], [facility] and [facility]. This list was sent to Kendell via email. Continue to monitor for d/c needs.
--- NOTE | 2023-11-09 12:04 | PC.NURSE ---
Patient is scheduled for discharge at 1300, IV (20G in left forearm) removed, patient's belongings at bedside
--- NOTE | 2023-11-09 14:20 | MHC.CM.ED ---
Patient remains in ER overflow. Received notification from Kendell that patient's has an appointment with Chelsie posey [facility] in [facility] tomorrow for an in-person assessment and tour. After that, virtual assessment will be arranged for patient with the hopes of transitioning patient to [facility] for hospice. Continue to monitor for d/c needs.
--- NOTE | 2023-11-09 14:46 | PC.NURSE ---
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
--- NOTE | 2023-11-09 15:42 | PC.NURSE ---
Pt requested that lights be turned off. Camera on patient at this time. Bed alarms on, bed in low position. Visitors left bedside approximately 10 minutes ago.
--- NOTE | 2023-11-09 16:58 | PC.NURSE ---
Patient refused offered dinner tray. Placed in Overflow refridgerator in case he changes his mind at a later time. Comfort measures only. Remains dry, no urinary or bowel incontinence.
--- NOTE | 2023-11-09 17:11 | MHC.EDTECH ---
This pct assumed care of Patient at 1500 ,Patient clean and dry ,This pct tried to feed Patient dinner ,but Pt refused ,RN aware .
[2023-11-09 21:17] VITALS: PULSE 64; RESP 15; O2SAT 95
--- NOTE | 2023-11-09 21:52 | PC.NURSE ---
Contacted pharmacy regarding Memantine. Medication unavailable in Overflow ED Pyxis. To be administered upon arrival from pharmacy department.
--- NOTE | 2023-11-09 22:08 | MHC.EDTECH ---
Patient continue to refused to eat or drink ,RN aware .
[2023-11-09] MEDS: Docusate Sodium 100 MG CAPSULE PO (22:25)
--- NOTE | 2023-11-09 22:51 | MHC.EDTECH ---
DAMEON Che is aware that Patient has not void on my shift .
[2023-11-10 05:14] VITALS: PULSE 68; RESP 14; O2SAT 91
[2023-11-10] MEDS: Memantine HCl 10 MG TABLET PO ×2 (10:00→20:35)
[2023-11-10] MEDS: Docusate Sodium 100 MG CAPSULE PO (20:35)
[2023-11-11 06:00] VITALS: RESP 17
[2023-11-11] MEDS: Memantine HCl 10 MG TABLET PO ×2 (08:49→21:27)
--- NOTE | 2023-11-11 09:25 | PC.NURSE ---
pt noted to have excessive coughing this AM. HOB elevated to 45 degrees. pt shook head as in no when asked if he was in pain. pt speech mumbled and incomprehensible at times
--- NOTE | 2023-11-11 12:20 | MHC.CM.ED ---
PER CONVERSATION WITH PATIENT'S SON, EVAN [phone], HE HAS NOT YET SECURED A PLACEMENT FOR HIS FATHER, NOR HAS HE MADE ANY FURTHER EFFORT OTHER THAN ATTEMPTING TO SECURE [facility] FOR PATIENT AND , WHERE HOSPICE SERVICES COULD BE UTILIZED. EVAN [place] [facility] [place]. PER REVIEW OF FACILITY, HOSPITAL DOES HAVE A COMFORT CARE SECTION OF HOSPITAL WHERE PATIENT'S ARE KEPT WHO MEET PAIN CONTROL REQUIREMENTS. PER REVIEW OF CHART, PATIENT'S PAIN IS BEING MANAGED HERE. CM FOLLOWING
--- NOTE | 2023-11-11 12:25 | MHC.CM.ED ---
[facility] UPDATED.'AGENCY WILL CONTINUE TO FOLLOW IN THE EVENT THAT PATIENT NEED NEEDS CHANGE, OR THAT HE DC HOME IN NEED OF SERVICES.
[2023-11-11 14:00] VITALS: BP 176/69; PULSE 78; RESP 15; TEMP 36.4; O2SAT 97
--- NOTE | 2023-11-11 14:11 | PC.NURSE ---
this nurse took over are of patient at 1300, patient awake/answering questions upon this nurse speaking with him, pt denying pain/discomfort at this time, vitals were obtained per request of PA- vss at this time, family at bedside, pt rr currently equal/non labored. call garcia within reach, will continue to monitor
--- NOTE | 2023-11-11 16:35 | MHC.CM.ED ---
Received callback from Francisca at [facility] [phone] at 1550. She left a message. HARITHA had called yesterday looking for any information on inpatient hospice or SNF hospice in [place] with private pay. HARITHA will need to return telephone call tomorrow am.
--- NOTE | 2023-11-11 16:55 | PC.NURSE ---
this nurse went in to offer to turn/position the patient multiple times- pt refused, family is aware of this as they are at bedside, family offered to feed patient dinner and came to the nurses station stating he only took a few bites.
--- NOTE | 2023-11-11 19:24 | PC.NURSE ---
This RN assumed pt care @ 1900. Pt a&ox4, no signs of distress. Pt with family at bedside Plan of care ongoing.
--- NOTE | 2023-11-11 19:54 | PC.NURSE ---
Family no longer at bedside. [place] cath placed on pt. Pt positioned for comfort Plan of care ongoing
--- NOTE | 2023-11-11 20:32 | PC.NURSE ---
Pt attempting to get oob Pt redirected and assisted back into bed. Pt requested and light turned on Plan of care ongoing.
[2023-11-11] MEDS: Docusate Sodium 100 MG CAPSULE PO (21:27)
--- NOTE | 2023-11-11 21:30 | PC.NURSE ---
Pt medicated per apr. Plan of care ongoing.
--- NOTE | 2023-11-11 21:43 | PC.NURSE ---
Pt attempting to get oob Pt redirected back into bed Pt requested and given something to drink Plan of care ongoing.
--- NOTE | 2023-11-12 08:24 | MHC.CM.ED ---
Addendum entered by Isi Vigil 11/12/23 16:04: [facility] does not have a bed. Kendell and George made aware. Addendum entered by Isi Vigil 11/12/23 13:57: Starla from [facility] recommended referral to [facility]. Referral already made but no response was given. T/W spoke with Crystal at [facility]. They have no bed availability. Addendum entered by Isi Vigil 11/12/23 12:22: Left a voicemail for Jannet of [facility] requesting return telephone call. Addendum entered by Isi Vigil 11/12/23 10:29: [facility]. Waiting to hear from [facility] to willing to offer a bed. T/W explained family did not hear good things about the facility. Justen liaison for [facility] stated the facility is under new management and recommended family to tour. Family made aware and provided with Just[facility]'s contact info. Addendum entered by Isi Vigil 11/12/23 09:41: [facility] Kend[facility] choice. Original Note: Patient remains in ER overflow. Spoke with Francisca at [facility]. They do have inpatient hospice at [facility]. However, it is only for patients that are already active with their agency and their symptoms are unable to be managed at home. They do provide hospice at [facility]. However, 15/09 care does have to be provided by family or private pay care. Francisca recommended referrals to [facility], [facility] and [facility]. These referrals have already been made. [facility] and [facility] do not have bed. T/W reached out to [facility] and [facility]. Patient's sons Kendell and George made aware. Continue to monitor for d/c needs.
[2023-11-12 09:13] VITALS: BP 141/93; PULSE 98; RESP 18; TEMP 36.3; O2SAT 95
[2023-11-12 14:00] VITALS: RESP 14; TEMP 36.6
[2023-11-13 06:00] VITALS: PULSE 78; RESP 18; TEMP 36.1
[2023-11-13] MEDS: Memantine HCl 10 MG TABLET PO (09:10)
--- NOTE | 2023-11-13 09:50 | PC.NURSE ---
Patient medicated this morning per provider orders. Pt ate breakfast as assisted by ED PCT. Dysphagia monitoring, thickened and pureed foods provided. Single medication administered in a spoonful of pudding without issue. No incontinence at this time.
--- NOTE | 2023-11-13 09:53 | MHC.CM.ED ---
Patient remains in ER overflow. Reached out to facilities that [facility] does not have a bed. [facility] in [place] doesn't have a bed. Clinical info sent via email to [facility]. Left a voicemail requesting a return telephone call for [facility] in [place]. Attempted to reach [facility] in [place]. There was no answer. Left a voicemail requesting a return telephone call from [facility] in [place]. [facility] in [place] does not have a bed. Received notification from [facility] that they will be able to offer a bed but want to discuss financials with family. [facility] can be reached via telephone at [phone]. This information was forwarded to arsen Mireles. Continue to monitor for d/c needs.
--- NOTE | 2023-11-13 10:26 | MHC.EDTECH ---
repositioned and checked for inc, pt fully dry. also ate 75% of breakfast and 120cc of fluids
--- NOTE | 2023-11-13 13:49 | MHC.CM.ED ---
Per Balaji at [facility], family accepts bed. Patient will transfer to their facility on Wednesday 11/15 at 10am. [facility] booked. Med nec with chart. Patient, sons Melissa Evans RN and Olivia ROCHA aware. Continue to monitor for d/c needs.
--- NOTE | 2023-11-13 18:29 | PC.NURSE ---
assumed care of patient at 1645. He was resting quietly with family at bedside and denied any pain or current needs. He demonstrates no s/s distress. Family leaving for the night. safety precautions maintained.
--- NOTE | 2023-11-14 05:49 | MHC.EDTECH ---
Called [facility] to verify transport from case management, Todd from dispatched informed me it was not booked. This [employer] gave demographics and transfer information on patient
[2023-11-14 05:53] VITALS: PULSE 98; RESP 16; TEMP 36.3; O2SAT 95
--- NOTE | 2023-11-14 07:11 | MHC.EDTECH ---
[facility] CANCELLED FOR TRIP TODAY S THIS PT WILL BE GOING ON Thursday11/16/23 TO [facility] @ [address] [place] [address],
[2023-11-14 13:49] VITALS: RESP 16
[2023-11-14] MEDS: Memantine HCl 10 MG TABLET PO (21:17)
--- NOTE | 2023-11-14 21:28 | PC.NURSE ---
pt noted to be incontinent of urine, cleaned and repositioned in bed w brief applied. some skin redness noted to coccyx, pillow repositioned behind R buttock. pt agreeable to namenda - medication given crushed in pudding. pt tolerated well. pt given swab w water. pt sititng up in bed w TV on.
[2023-11-14 22:00] VITALS: RESP 16
--- NOTE | 2023-11-14 22:36 | MHC.EDTECH ---
Patient was reposition and cleaned up also changed
--- NOTE | 2023-11-15 01:13 | PC.NURSE ---
Assumed care of pt @2300 . Pt repositioned to his L side. Denies pain. No apparent distress. camera in room. Plan of care ongoing
[2023-11-15 05:56] VITALS: RESP 16
[2023-11-15] MEDS: Memantine HCl 10 MG TABLET PO (08:20)
--- NOTE | 2023-11-15 09:20 | MHC.EDTECH ---
pt was washed up and had a complete bed change
--- NOTE | 2023-11-15 09:45 | MHC.EDTECH ---
pt ate 50% of his breakfast
--- NOTE | 2023-11-15 12:21 | MHC.CM.PN ---
EMR REVIEWED, CM MET W/SON EVAN AT BEDSIDE TO DISCUSS PLAN, SON WAS CONCERNED ABOUT LOOGISTICS NOW THAT PT'S IS BEING AD[facility]ED [facility], EVAN REPORTS PLAN IS FOR PT'S TO MOVE TO AN CUSTODIAL NEAR HIM IN A FEW WEEKS AND WOULD LIKE STR IF NEEDED AT [facility], CM WILL ADD NOTE TO PT'S 'S CHART. EVAN AGREEABLE TO PLAN FOR 10AM DC TO [facility] COMPLETED BY PREVIOUS CM AND W/ED OIL PUMP STATION OPERATOR CHIEF AND RIDE CONFIRMED W/ADELAIDE.
[2023-11-15 14:00] VITALS: RESP 14
[2023-11-15 20:35] VITALS: RESP 16
[2023-11-16 07:41] VITALS: RESP 20
[2023-11-16] MEDS: Memantine HCl 10 MG TABLET PO (07:50)
--- NOTE | 2023-11-16 07:52 | PC.NURSE ---
patient medicated per APR, takes meds crushed with applesauce.
--- NOTE | 2023-11-16 09:21 | PC.NURSE ---
family at bedside, update given. patient to leave today via ambulance.
--- NOTE | 2023-11-16 09:58 | PC.NURSE ---
patients brief and bedding clean and dry, awaiting ambulance arrival.
--- NOTE | 2023-11-16 10:34 | PC.NURSE ---
report given to [facility] for tx
== END 2023-11-16 10:38 ==
PROVIDERS: Emergency Medicine; Emergency Provider Emergency Medicine; PCP Family Medicine
DX: R41.82 Altered mental status, unspecified (principal); I25.10 Atherosclerotic heart disease of native coronary artery without angina pectoris; I48.0 Paroxysmal atrial fibrillation; F41.9 Anxiety disorder, unspecified; R07.89 Other chest pain; I48.92 Unspecified atrial flutter; R26.81 Unsteadiness on feet; R94.31 Abnormal electrocardiogram [ECG] [EKG]; R51.9 Headache, unspecified; I10 Essential (primary) hypertension; Z03.818 Encounter for observation for suspected exposure to other biological agents ruled out; Z51.81 Encounter for therapeutic drug level monitoring; Z79.01 Long term (current) use of anticoagulants; Z79.899 Other long term (current) drug therapy
CPT/HCPCS: 0241U; 36415; 70450; 71045; 80048; 80076; 80307; 81003; 82140; 82803; 83605; 83735; 84484; 85025; 85610; 93005; 97162; 99285; J1596